=== PATIENT | male | born 1940 | race Caucasian/White ===

== ENCOUNTER 2021-12-04 10:43 | Inpatient (IN) ==
--- NOTE | 2021-12-04 11:09 | Emergency Department Note ---
Impression & Plan Stroke-like symptoms, Double vision, HTN (hypertension), Dyslipidemia, Gaze palsy ED Provider Note NAME: JANINE PALOMARES AGE: 81 SEX: M : 1940 ARRIVES VIA: Ambulance INFORMANT: Patient, ED PROVIDER(S): Rolo Meyer MD Chief Complaint: Double vision, weakness HPI: Patient presents with the above complaints. Patient states that his symptoms began around 830 this morning he had some generalized weakness and some double vision which has been intermittent in nature. The patient has not seen an eye doctor in several years. The patient did feel generally weak and thus did not want to do anything further to risk a concern for fall as he felt as though his legs were "rubbery." Patient Nuys any recent falls or trauma no history of stroke or mini stroke. The patient believes that the double vision is [id number] and not top to bottom. Patient denies any headache or neck pain. No numbness tingling or focal weakness. No slurred speech or facial droop. Patient states that he has been eating and drinking appropriately. The patient does occasionally use alcohol maybe a drink of george in the evening but is a former tobacco user but has not used in 40 years. ROS: See HPI for pertinent positives and negatives. A total of 10 systems were reviewed and otherwise negative. Past medical history: See below Surgical history: See below Social history: See below Physical Exam: GENERAL: NAD, wearing a mask, non-toxic. Glasses. EYE EXAM: Normal conjunctiva. PERRL, no anisocoria and EOM's grossly intact w/o pain. NECK: Supple, no nuchal rigidity, no adenopathy, non-tender. No signs of menin gismus. FROM of the neck with good chin to chest and neck extension. No stridor. LUNGS: Clear to auscultation. Normal chest wall mechanics. HEART: NSR, no MRG. ABDOMEN: Abdomen soft, non-tender, normo-active bowel sounds, no masses, no rebound or guarding. BACK: No CVA TTP. SKIN: No rashes and no bruising. UPPER EXTREMITIES: Upper extremities are grossly normal. LOWER EXTREMITIES: Grossly normal, no edema. NEURO EXAM: A&O x3, cranial nerves II-XII grossly intact with exception of occasional right moving to the right and the left eye is unable to move past the midline when looking to the right. Normal speech, moves all 4 extremities. [id number]-[id number] on the patient's eyes are closed, no sensory deficits. Differential diagnoses: Infection, dehydration, metabolic abnormality, hypo/hyperglycemia, electrolyte disturbance, anemia, hypoxia, cardiac sources, intracerebral event, toxicologic, neurologic, as well as other pathologies. Course: Patient was seen and evaluated the bedside. Full history physical exam was performed. EKG interpreted by me Sinus bradycardia, rate of 56, normal intervals, left axis deviation, no obvious ST elevations. Imaging Studies: See Below Cardiac monitoring: An order was placed for continuous cardiac monitoring. The monitor shows a rate of 77 with sinus rhythm. MDM: Patient was seen and upon identifying the patient's gaze palsy a code stroke was initiated as he was still within the window for TNKase potentially. The patient may not be a candidate as the patient does have a prior history of GI bleed for which he had stopped taking blood thinning medication. Blood work is obtained along with a CT of the head. CT angiography initially deferred given the patient's prior history of CKD with the patient's creatinine is range anywhere from 2 to greater than 3. I did speak with telestroke neurology Dr. Cordon who was going to evaluate the patient. There was a prolonged discussion about TNKase as the patient was debating the risks and benefits. This was also in light of the patient's prior history of GI bleeding. The patient has a normal H&H and platelet count. Patient's coagulation studies are normal. Tthe patient initially did not have a CT angiography as it was thought that the patient did have kidney dysfunction but given the patient's symptoms and the timeliness the patient eventually did state that he would like to have the TNKase. There was a delay in door to needle time primarily due to the fact that the patient was not triaged as a stroke and only noted to have stroke like symptoms when evaluated by myself which was somehwere betwen 30-40 minutes after presenting via ambulance. There was no pre arrival call either. The patient did consent to receiving the tNK after discussing the patient's CT of the head which did show an 8 mm peripherally calcified density posterior to the left ICA terminus which could be meningioma versus left MARKETING INFORMATION ANALYST aneurysm that is partially calcified. The telestroke neurologist further di scussed that an unruptured aneurysm would have a slightly higher risk of bleed and after further discussion the patient would still like to proceed with TNKase. TNKase was ordered after the decision was made to give it and consent was obtained verbally from the patient as well as the patient's family member at bedside. The patient was given labetalol CHRISTI or as the patient was slightly hypertensive. Patient's blood pressure did improve to the parameters in which TNKase could be administered. The patient did have a small amount of oral bleeding which did not appear to be significant when I assessed the patient. 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 I did speak with Dr. Huber again who stated that he did not require any additional intervention at this time and did not require transfer. The patient did have resolution of his gaze palsy and double vision. Patient was admitted to the intensive care unit. I did briefly discuss the patient's case with the special education superintendent Dr. Paz. Patient's brain MRI was pending at the time of admission. Discussion occurred with patient/family: We discussed the risks of IV thrombolytic therapy including a 5-7% risk of possible significant hemorrhage which can be fatal as well as about a 1% risk of angioedema. We also noted that IV thrombolytic therapy provides about a 30-40% probability of improved functional status and lower disability at 90 days than if not treated with thrombolytic. After discussion regarding risks and benefits as well as the inclusion and exclusion criteria, the patient then consented to receive IV thrombolytic therapy. Critical Care: I have personally spent 75 minutes of critical care time in direct management of this patient. This includes bedside care, interpretation of diagnostic studies, and testing, discussion with consultants, patient, and family members, and other require inpatient management activities. This 75 minutes is in excess of all separately billable procedures. 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 Follows vegan, no oil diet. marital status: Single Current Living Situation: Alone current occupational status: retired Feels Safe at Home: Yes Assistive Devices: Glasses Allergies Allergies Allergy/AdvReac Type Severity Reaction Status Date / Time No Known Allergies Allergy Unverified 12/04/21 12:37 Home Meds Home Medications Medication Instructions Recorded Confirmed amlodipine 5 mg tablet 5 mg PO DAILY 12/04/21 12/04/21 lisinopril 40 mg tablet 40 mg PO DAILY 12/04/21 12/04/21 pantoprazole 40 mg tablet,delayed 40 mg PO DAILY 12/04/21 12/04/21 release rosuvastatin 20 mg tablet 20 mg PO DAILY 12/04/21 12/04/21 Results & Data (ED) Vital Signs Vital Signs - 24 hr 12/04/21 10:46 12/04/21 10:50 12/04/21 11:32 Temperature 36.5 C Temperature Source Oral Pulse Rate 72 77 Pulse Rate [Apical] Pulse Rhythm [Apical] Pulse Strength [Apical] Respiratory Rate 20 23 Respiratory Effort / Characteristics Non-Labored Respiratory Depth Normal Respiratory Pattern Regular Blood Pressure 167/96 H Blood Pressure [Right Arm] Blood Pressure Mean 119 Blood Pressure Mean [Right Arm] Blood Pressure Position [Right Arm] Pulse Oximetry 98 Oxygen Delivery Method Room Air Room Air Sepsis New/Unexplained Change in Mental Status No Sepsis Action Taken by Nursing No Action Required 12/04/21 11:34 12/04/21 11:34 12/04/21 11:40 Temperature Temperature Source Pulse Rate 75 60 Pulse Rate [Apical] Pulse Rhythm [Apical] Pulse Strength [Apical] Respiratory Rate 23 21 Respiratory Effort / Characteristics Respiratory Depth Respiratory Pattern Blood Pressure 135/98 Blood Pressure [Right Arm] Blood Pressure Mean 110 Blood Pressure Mean [Right Arm] Blood Pressure Position [Right Arm] Pulse Oximetry 95 99 Oxygen Delivery Method Room Air Room Air Sepsis New/Unexplained Change in Mental Status Sepsis Action Taken by Nursing 12/04/21 12:35 12/04/21 11:50 12/04/21 12:00 Temperature Temperature Source Pulse Rate 58 L Pulse Rate [Apical] 72 Pulse Rhythm [Apical] Regular Pulse Strength [Apical] Normal Respiratory Rate 22 26 H Respiratory Effort / Characteristics Non-Labored Respiratory Depth Normal Respiratory Pattern Regular Blood Pressure 185/104 H Blood Pressure [Right Arm] 156/89 H Blood Pressure Mean 131 Blood Pressure Mean [Right Arm] 111 Blood Pressure Position [Right Arm] Sitting Pulse Oximetry 96 99 Oxygen Delivery Method Room Air Room Air Sepsis New/Unexplained Change in Mental Status Sepsis Action Taken by Nursing 12/04/21 12:00 12/04/21 12:10 12/04/21 12:27 Temperature Temperature Source Pulse Rate 70 75 68 Pulse Rate [Apical] Pulse Rhythm [Apical] Pulse Strength [Apical] Respiratory Rate 30 H 27 H 21 Respiratory Effort / Characteristics Respiratory Depth Respiratory Pattern Blood Pressure Blood Pressure [Right Arm] Blood Pressure Mean Blood Pressure Mean [Right Arm] Blood Pressure Position [Right Arm] Pulse Oximetry Oxygen Delivery Method Sepsis New/Unexplained Change in Mental Status Sepsis Action Taken by Nursing 12/04/21 12:36 12/04/21 12:36 12/04/21 12:40 Temperature Temperature Source Pulse Rate 57 L 72 Pulse Rate [Apical] Pulse Rhythm [Apical] Pulse Strength [Apical] Respiratory Rate 25 H 22 Respiratory Effort / Characteristics Respiratory Depth Respiratory Pattern Blood Pressure 156/89 H Blood Pressure [Right Arm] Blood Pressure Mean 111 Blood Pressure Mean [Right Arm] Blood Pressure Position [Right Arm] Pulse Oximetry 97 99 Oxygen Delivery Method Room Air Room Air Sepsis New/Unexplained Change in Mental Status Sepsis Action Taken by Nursing 12/04/21 12:41 12/04/21 12:41 12/04/21 12:48 Temperature Temperature Source Pulse Rate 75 Pulse Rate [Apical] Pulse Rhythm [Apical] Pulse Strength [Apical] Respiratory Rate 21 Respiratory Effort / Characteristics Respiratory Depth Respiratory Pattern Blood Pressure 135/89 135/82 Blood Pressure [Right Arm] Blood Pressure Mean 104 99 Blood Pressure Mean [Right Arm] Blood Pressure Position [Right Arm] Pulse Oximetry 98 Oxygen Delivery Method Room Air Sepsis New/Unexplained Change in Mental Status Sepsis Action Taken by Nursing 12/04/21 12:48 12/04/21 12:50 12/04/21 12:50 Temperature Temperature Source Pulse Rate 65 54 L Pulse Rate [Apical] Pulse Rhythm [Apical] Pulse Strength [Apical] Respiratory Rate 19 21 Respiratory Effort / Characteristics Respiratory Depth Respiratory Pattern Blood Pressure 136/77 Blood Pressure [Right Arm] Blood Pressure Mean 96 Blood Pressure Mean [Right Arm] Blood Pressure Position [Right Arm] Pulse Oximetry 97 97 Oxygen Delivery Method Room Air Room Air Sepsis New/Unexplained Change in Mental Status Sepsis Action Taken by [facility] Medications Current Medication List: was personally reviewed by me Laboratory Data Attestation: I reviewed the patient's lab results. Result diagrams: 12/04/21 11:06 12/04/21 11:06 Lab Results 12/04/21 12/04/21 12/04/21 Range/Units 11:06 11:06 11:06 WBC 4.32 L (4.8-10.8) K/ul RBC 4.40 L (4.63-6.08) M/uL Hgb 14.2 (14.0-18.0) g/dl Hct 41.3 (40.1-51.0) % MCV 93.9 (80.0-100.0) fL MCH 32.3 (25.0-34.0) pg MCHC 34.4 (32.0-36.0) g/dL RDW Std Deviation 43.8 (36.4-46.3) fL RDW Coeff of Lyudmila 12.8 (11.5-14.5) % Plt Count 152 (130-400) K/uL MPV 10.9 (9.4-12.4) fL Immature Gran % (Auto) 0.2 % Neut % (Auto) 59.1 % Lymph % (Auto) 25.2 % Waldo % (Auto) 13.4 % Eos % (Auto) 1.9 % Baso % (Auto) 0.2 % Neut # (Auto) 2.55 (1.4-6.5) K/uL Lymph # (Auto) 1.09 L (1.2-3.4) K/uL Waldo # (Auto) 0.58 (0.24-0.82) K/uL Eos # (Auto) 0.08 (0-0.50) K/uL Baso # (Auto) 0.01 (0-0.2) K/uL Immature Gran # (Auto) 0.01 (0.00-0.02) K/uL PT 10.9 (9.0-12.0) Seconds INR 1.0 (0.9-1.1) APTT 25.3 (21.0-31.0) Seconds PTT Ratio 0.9 Sodium 139 (136-145) mmol/L Potassium 4.5 (3.5-5.1) mmol/L Chloride 104 (98-107) mmol/L Carbon Dioxide 28 (21-32) mmol/L Anion Gap 7 (3-11) BUN 22 (6-23) mg/dl Creatinine 1.46 H (0.6-1.4) mg/dl Est Cr Clr Drug Dosing Not Reportable Est GFR ( Amer) 52.3 ml/min Est GFR (Non-Af Amer) 45.1 ml/min BUN/Creatinine Ratio 15.1 (10-20) Glucose 92 (70-99(Fasting)) mg/dl Calcium 9.5 (8.5-10.1) mg/dl Magnesium 2.3 (1.7-2.4) mg/dl Total Bilirubin 1.1 H (0.2-1.0) mg/dl AST 15 (13-39) U/L ALT 11 (7-52) U/L Alkaline Phosphatase 78 (34-104) U/L Troponin I High Sens 9.3 (0-20) pg/ml Total Protein 7.8 (6.0-8.3) gm/dl Albumin 4.9 (3.4-5.0) gm/dl Globulin 2.9 (2.5-4.0) gm/dl Albumin/Globulin Ratio 1.7 (0.9-2) Blood Type Antibody Screen 12/04/21 Range/Units 11:35 WBC (4.8-10.8) K/ul RBC (4.63-6.08) M/uL Hgb (14.0-18.0) g/dl Hct (40.1-51.0) % MCV (80.0-100.0) fL MCH (25.0-34.0) pg MCHC (32.0-36.0) g/dL RDW Std Deviation (36.4-46.3) fL RDW Coeff of Lyudmila (11.5-14.5) % Plt Count (130-400) K/uL MPV (9.4-12.4) fL Immature Gran % (Auto) % Neut % (Auto) % Lymph % (Auto) % Waldo % (Auto) % Eos % (Auto) % Baso % (Auto) % Neut # (Auto) (1.4-6.5) K/uL Lymph # (Auto) (1.2-3.4) K/uL Waldo # (Auto) (0.24-0.82) K/uL Eos # (Auto) (0-0.50) K/uL Baso # (Auto) (0-0.2) K/uL Immature Gran # (Auto) (0.00-0.02) K/uL PT (9.0-12.0) Seconds INR (0.9-1.1) APTT (21.0-31.0) Seconds PTT Ratio Sodium (136-145) mmol/L Potassium (3.5-5.1) mmol/L Chloride (98-107) mmol/L Carbon Dioxide (21-32) mmol/L Anion Gap (3-11) BUN (6-23) mg/dl Creatinine (0.6-1.4) mg/dl Est Cr Clr Drug Dosing Est GFR ( Amer) ml/min Est GFR (Non-Af Amer) ml/min BUN/Creatinine Ratio (10-20) Glucose (70-99(Fasting)) mg/dl Calcium (8.5-10.1) mg/dl Magnesium (1.7-2.4) mg/dl Total Bilirubin (0.2-1.0) mg/dl AST (13-39) U/L ALT (7-52) U/L Alkaline Phosphatase (34-104) U/L Troponin I High Sens (0-20) pg/ml Total Protein (6.0-8.3) gm/dl Albumin (3.4-5.0) gm/dl Globulin (2.5-4.0) gm/dl Albumin/Globulin Ratio (0.9-2) Blood Type AB Positive Antibody Screen NEGATIVE Administered Medications Pantoprazole Sodium 40 mg/ (Syringe) 10 mls @ 5 mls/min IV DAILY@1100 VITALIY Stop: 01/03/22 13:59 Last Admin: 12/04/21 15:57 Dose: 5 mls/min Documented By: MICHAEL Discontinued Medications Gadobutrol (Gadobutrol 65ml Vial) 8.5 ml IV ONCE ONE Stop: 12/04/21 15:15 Last Admin: 12/04/21 15:15 Dose: 8.5 ml Documented By: JZ Tenecteplase 21 mg/ Syringe 4.2 mls @ 50.4 mls/min IV NOW ONE; Protocol Stop: 12/04/21 12:29 Last Admin: 12/04/21 12:36 Dose: 50.4 mls/min Documented By: ESTRELLA Co-signed By: BRETT Ioversol (Optiray 300 500ml) 120 ml IV ONCE ONE Stop: 12/04/21 13:30 Last Admin: 12/04/21 13:30 Dose: 120 ml Documented By: MILES Labetalol HCl (Labetalol Hcl Iv 5 Mg/Ml 20ml) 10 mg IV NOW STA Stop: 12/04/21 12:18 Last Admin: 12/04/21 15:53 Dose: Not Given Documented By: MICHAEL Miscellaneous (Stat Iv) 1 each N/A NOW STA Stop: 12/04/21 12:18 Last Admin: 12/04/21 12:22 Dose: 1 each Documented By: ESTRELLA Sodium Chloride (Sodium Chloride 0.9% 10ml Flush) 20 ml IV NOW STA Stop: 12/04/21 12:18 Last Admin: 12/04/21 12:37 Dose: 20 ml Documented By: ESTRELLA Imaging Data Radiologist's Impression: Head CT 12/04/21 11:19 CT OF THE HEAD WITHOUT CONTRAST CLINICAL HISTORY: Stroke Like Symptoms. Ataxia. COMPARISON STUDY: No previous studies for comparison. CT DOSE: 687.98 mGy.cm TECHNIQUE: Helical axial images of the head were obtained without IV contrast. Automated exposure control was utilized for the study. A dose lowering technique was utilized adhering to the principles of ALARA. FINDINGS: No acute intracranial hemorrhage, midline shift or mass effect is present. Note is made of an 8 mm peripherally calcified density posterior to the left ICA terminus. White matter hypodensity suggests small vessel disease. The ventricular system is unremarkable. The basal cisterns are patent. No extra- axial collections are present. There are no findings to suggest acute dural sinus thrombosis or acute territorial infarct. No significant calvarial abnormalities are present. There is mild mucosal thickening of the right maxillary sinus. IMPRESSION: 1. No acute intracranial findings. 2. 8 mm peripherally calcified density posterior to the left ICA terminus. This is indeterminate and could reflect a peripherally calcified left posterior communicating artery aneurysm or a meningioma. A CTA of the head could be obtained for further evaluation. ACT 112: Negative or not required by law. Electronically signed by: Reji Long M.D. 12/04/2021 11:56 AM Head CTA 12/04/21 12:23 HEAD & NECK CTA HISTORY: Ataxia. posterior circ symptoms TECHNIQUE: Multiaxial CT images of the head were performed following the intravenous administration of contrast to evaluate the major cerebral vessels. Multiaxial CT images of the neck were also performed following the intravenous administration of contrast to evaluate the major cervical vessels. Maximum intensity projection images were also obtained. A dose lowering technique was utilized adhering to the principles of ALARA. COMPARISON: Head CT 12/04/2021. FINDINGS: There is no mass, hematoma, midline shift, or acute infarct. Visualized intracranial internal carotid arteries, distal vertebral arteries, and basilar artery are widely patent. There is no significant stenosis, occlusion, or aneurysm seen within the bilateral ACAs, MCAs . The right MARKETING INFORMATION ANALYST is widely patent. There is focal moderate narrowing at the confluence of the left P1/P2 segments. The distal left MARKETING INFORMATION ANALYST appears patent. Immediately posterior to the left MARKETING INFORMATION ANALYST at the expected location of the left posterior communicating artery there is a 7 mm hypodense partially calcified focus. 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 This corresponds to the CT abnormality. The major dural venous sinuses are patent. Mild mucosal thickening within the right maxillary sinus. The aortic arch and proximal great vessels are widely patent. Mild focal aneurysmal dilatation of the mid left vertebral artery on image 267 measuring 6.5 mm. Moderate focal stenosis of approximately 50% within the takeoff of the left vertebral artery. Moderate atherosclerotic plaque within the takeoff of the left internal carotid artery demonstrating approximately 30% focal stenosis. No high-grade stenosis within the internal carotid arteries. There is mild calcified plaque within the proximal right internal carotid artery demonstrating approximately 20% focal stenosis on image 282. Bilateral common carotid arteries are widely patent. No evidence for carotid or vertebral artery dissection. IMPRESSION: 1. Moderate focal narrowing at the confluence of the left P1/P2 segments. The distal left MARKETING INFORMATION ANALYST appears patent. 2. Immediately posterior to the proximal left MARKETING INFORMATION ANALYST at the expected location of the left posterior communicating artery there is a 7 mm hypodense partially calcified focus. 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 3. Moderate focal stenosis at the takeoff of the left vertebral artery. 4. Mild stenosis within the proximal bilateral internal carotid arteries as described above. ACT 112: Negative or not required by law. Electronically signed by: Kamaljit Larkin M.D. 12/04/2021 1:52 PM Neck CTA 12/04/21 12:23 HEAD & NECK CTA HISTORY: Ataxia. posterior circ symptoms TECHNIQUE: Multiaxial CT images of the head were performed following the intravenous administration of contrast to evaluate the major cerebral vessels. Multiaxial CT images of the neck were also performed following the intravenous administration of contrast to evaluate the major cervical vessels. Maximum in tensity projection images were also obtained. A dose lowering technique was utilized adhering to the principles of ALARA. COMPARISON: Head CT 12/04/2021. FINDINGS: There is no mass, hematoma, midline shift, or acute infarct. Visualized intracranial internal carotid arteries, distal vertebral arteries, and basilar artery are widely patent. There is no significant stenosis, occlusion, or aneurysm seen within the bilateral ACAs, MCAs . The right MARKETING INFORMATION ANALYST is widely patent. There is focal moderate narrowing at the confluence of the left P1/P2 segments. The distal left MARKETING INFORMATION ANALYST appears patent. Immediately posterior to the left MARKETING INFORMATION ANALYST at the expected location of the left posterior communicating artery there is a 7 mm hypodense partially calcified focus. 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 This corresponds to the CT abnormality. The major dural venous sinuses are patent. Mild mucosal thickening within the right maxillary sinus. The aortic arch and proximal great vessels are widely patent. Mild focal aneurysmal dilatation of the mid left vertebral artery on image 267 measuring 6.5 mm. Moderate focal stenosis of approximately 50% within the takeoff of the left vertebral artery. Moderate atherosclerotic plaque within the takeoff of the left internal carotid artery demonstrating approximately 30% focal stenosis. No high-grade stenosis within the internal carotid arteries. There is mild calcified plaque within the proximal right internal carotid artery demonstrating approximately 20% focal stenosis on image 282. Bilateral common carotid arteries are widely patent. No evidence for carotid or vertebral artery dissection. IMPRESSION: 1. Moderate focal narrowing at the confluence of the left P1/P2 segments. The distal left MARKETING INFORMATION ANALYST appears patent. 2. Immediately posterior to the proximal left MARKETING INFORMATION ANALYST at the expected location of the left posterior communicating artery there is a 7 mm hypodense partially calcified focus. 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 3. Moderate focal stenosis at the takeoff of the left vertebral artery. 4. Mild stenosis within the proximal bilateral internal carotid arteries as described above. ACT 112: Negative or not required by law. Electronically signed by: Kamaljit Larkin M.D. 12/04/2021 1:52 PM Discharge Plan Visit Data Chief Complaint: Weakness ED Provider: Rolo Meyer Discharge Problem: Stroke-like symptoms, Double vision, HTN (hypertension), Dyslipidemia, Gaze palsy Patient Disposition: Admitted As Inpatient Discharge Instructions Interventions: ED Discharge Assessment Last Done: 12/04/21 14:45
[2021-12-04 11:27] LABS: Basophils # (auto) 0.01 K/uL (0-0.2); Basophils % (auto) 0.2 %; Eosinophils # (auto) 0.08 K/uL (0-0.50); Eosinophils % (auto) 1.9 %; Hematocrit (blood only) 41.3 % (40.1-51.0); Hemoglobin 14.2 g/dl (14.0-18.0); Immature Granulocytes # (auto) 0.01 K/uL (0.00-0.02); Immature Granulocytes % (auto) 0.2 %; Lymphocytes # (auto) 1.09 K/uL (1.2-3.4); Lymphocytes % (auto) 25.2 %; Mean Corpuscular Hemoglobin 32.3 pg (25.0-34.0); Mean Corpuscular Hgb Conc 34.4 g/dL (32.0-36.0); Mean Corpuscular Volume 93.9 fL (80.0-100.0); Mean Platelet Volume 10.9 fL (9.4-12.4); Monocytes # (auto) 0.58 K/uL (0.24-0.82); Monocytes % (auto) 13.4 %; Neutrophils # (auto) 2.55 K/uL (1.4-6.5); Neutrophils % (auto) 59.1 %; Platelet Count 152 K/uL (130-400); RDW Coefficient of Variation 12.8 % (11.5-14.5); RDW Standard Deviation 43.8 fL (36.4-46.3); White Blood Count 4.32 K/ul (4.8-10.8)
[2021-12-04 11:34] LABS: Partial Thromboplastin Ratio 0.9; Partial Thromboplastin Time 25.3 Seconds (21.0-31.0); Prothrombin Time 10.9 Seconds (9.0-12.0)
[2021-12-04 11:53] LABS: Alanine Aminotransferase 11 U/L (7-52); Albumin Globulin Ratio 1.7 (0.9-2); Albumin Level 4.9 gm/dl (3.4-5.0); Alkaline Phosphatase 78 U/L (34-104); Anion Gap 7 (3-11); Aspartate Aminotransferase 15 U/L (13-39); BUN Creatinine Ratio 15.1 (10-20); Bilirubin,Total 1.1 mg/dl (0.2-1.0); Blood Urea Nitrogen 22 mg/dl (6-23); Calcium 9.5 mg/dl (8.5-10.1); Carbon Dioxide 28 mmol/L (21-32); Chloride 104 mmol/L (98-107); Est GFR (African American) 52.3 ml/min; Est GFR (Non-African American) 45.1 ml/min; Globulin 2.9 gm/dl (2.5-4.0); Glucose 92 mg/dl (70-99(Fasting)); Magnesium 2.3 mg/dl (1.7-2.4); Potassium 4.5 mmol/L (3.5-5.1); Sodium 139 mmol/L (136-145); Total Protein 7.8 gm/dl (6.0-8.3)
[2021-12-04 11:55] LABS: Troponin I High Sensitivity 9.3 pg/ml (0-20)
--- NOTE | 2021-12-04 11:57 | CT Scan Report ---
CT OF THE HEAD WITHOUT CONTRAST CLINICAL HISTORY: Stroke Like Symptoms. Ataxia. COMPARISON STUDY: No previous studies for comparison. CT DOSE: 687.98 mGy.cm TECHNIQUE: Helical axial images of the head were obtained without IV contrast. Automated exposure con trol was utilized for the study. A dose lowering technique was utilized adhering to the principles o f ALARA. FINDINGS: No acute intracranial hemorrhage, midline shift or mass effect is present. Note is made of an 8 mm peripherally calcified density posterior to the left ICA terminus. White matter hypodensity s uggests small vessel disease. The ventricular system is unremarkable. The basal cisterns are patent. No extra-axial collections are present. There are no findings to suggest acute dural sinus thrombosis or acute territorial infarct. No significant calvarial abnormalities are present. There is mild muco joann thickening of the right maxillary sinus. IMPRESSION: 1. No acute intracranial findings. 2. 8 mm peripherally calcified density posterior to the left ICA terminus. This is indeterminate and could reflect a peripherally calcified left posterior communicating artery aneurysm or a meningioma. A CTA of the head could be obtained for further evaluation. ACT 112: Negative or not required by law. Electronically signed by: Reji Long M.D. 12/04/2021 11:56 AM
[2021-12-04] MEDS ORDERED: LABETALOL HCL IV 5 MG/ML 20ML IV STA (12:17)
[2021-12-04] MEDS ORDERED: LABETALOL HCL IV 5 MG/ML 20ML IV PRN (12:17)
[2021-12-04] MEDS ORDERED: STAT IV STA (12:17)
[2021-12-04] MEDS ORDERED: SODIUM CHLORIDE 0.9% 10ML FLUSH IV STA (12:17)
[2021-12-04] MEDS ORDERED: TENECTEPLASE 21 MG in SYRINGE 0 ML IV ONE (12:28)
[2021-12-04] MEDS ORDERED: No Aspirin within 24hrs of THROMBOLYTIC-Stroke PO SCH (12:30)
--- NOTE | 2021-12-04 13:05 | History & Physical Report ---
Date of Service December 04, 2021 Assessment & Plan (1) Stroke-like symptoms: (2) Double vision: (3) HTN (hypertension): (4) Bilateral pulmonary embolism: (5) GIB (gastrointestinal bleeding): Plan Mr. Gallagher is a 81 year old male who presented to the [facility] with double vision and overall weakness that started this morning at 0830. Teleneuro consultation/CVA alert s/p TNK administration. Head CT r/o ICH; suggests 8mm density of the left ICA terminus. Head CTA and brain MRI pending. Pt to be admitted to ICU for post TNK neuro checks and HTN management. Stroke-like Symptoms Double Vision Weakness: Symptoms started at 0830 this morning with overall lower extremity weakness. Post TNK Teleneuro consultation done; per review with ED doc - no need to transfer at this time. 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 MRI brain w/wo contrast pending Stroke order set initiated Some PAC's noted post administration of TNK - repeat EKG ordered. Post TNK - double vision improved. HTN: H/O HTN; takes Amlodipine and Lisinopril; hold for now Received Labatolol 10 mg IV x2 in ED; appears normotensive SBP 135. B/L Pulmonary Embolism: 4-5 years ago. Was started on Xaralto; stopped d/t GIB in 03/2021 H/O GIB: Stable: Anticoagulation stopped 04/01 When GIB occurred Hgb: 14.2 Dispo: PCP: unknown. Pt lives in [place]. Reports not going to the doctor often. Code Status: DNR/DNI Next of Kin: Adam Gallagher (son and POA) Lives in [place] [phone] VTE Prophylaxis: just received TNK. TEDs/SCDs Pt lives alone in a 2-story home and is able to complete and perform his own ADL's independently. History of Present Illness Chief Complaint: dbl vision/weakness Primary Care Provider: NO PCP Mr. Gallagher is a 81 year old male who presented to the [facility] with double vision and overall lower extremity weakness that started this morning at 0830. He is visiting his family from [place] He reportedly stated that his legs felt 'rubbery'. The patient denies any recent trauma or other falls. He reports no history of previous CVA/TIA. The pt had a head CT that ruled out I CH; however, an 8mm density of the left ICA terminus was noted suggesting a possible meningioma. A CTA was performed as well and thrombosed PCOM was noted. MRI pending. Teleneuro consultation was held at 1130 post TNK, along with him receiving antihypertensive agents. Patient is DNR/DNI and discussion held with Neuro telemed; no need to transfer at this time. Additional PMH includes bilateral PE and his anticoagulation was discontinued in March 2021 s/p GIB . Otherwise, no real reported PMH and he is not currently in our EMR system. Patient will be admitted to ICU for post TNK neuro checks and BP management. Case discussed with Dr. Pool and Dr. Douglass in detail. Please see A/P for further details. Allergies Allergy/AdvReac Type Severity Reaction Status Date / Time No Known Allergies Allergy Unverified 12/04/21 12:37 Home Medications Medication Instructions Recorded Confirmed Type amlodipine 5 mg tablet 5 mg PO DAILY 12/04/21 12/04/21 History lisinopril 40 mg tablet 40 mg PO DAILY 12/04/21 12/04/21 History pantoprazole 40 mg tablet,delayed 40 mg PO DAILY 12/04/21 12/04/21 History release rosuvastatin 20 mg tablet 20 mg PO DAILY 12/04/21 12/04/21 History Past Med/Surg History Medical History (Updated 12/04/21 @ 16:01 by Laura Pool MD) Bilateral pulmonary embolism Double vision GI bleed GIB (gastrointestinal bleeding) H/O: HTN (hypertension) HTN (hypertension) Stroke-like symptoms Family History Other No significant family history Social History Smoking Status: Former smoker Hx Alcohol Use: No Hx Substance Use: No Preferred Language: Malagasy Communication Ability: Effective Pharmacy Informatics Specialist Required: No Beliefs That Will Affect Care: Jew Jew Beliefs: Retired [employer]. Follows vegan, no oil diet. marital status: Single Current Living Situation: Alone current occupational status: retired Other Information That Helps Us Care for You: No Feels Safe at Home: Yes Safety Concerns: Feels Safe At This Time Assistive Devices: Glasses Review of Systems Review of Systems: Neuro: (-) Falls, trauma, slurred speech (+) dbl vision HEENT: (-) GARCIA, dizziness, dysphagia, visual or auditory changes CV: (-) CP, palpitations, swelling Resp: (-) SOB GI: (-) appetite changes, N/V/D, bowel changes : (-) urinary changes Skin: (-) rashes Psych: (-) anxiety, depression Physical Exam Physical Exam: Neuro: AAOx4, PERRLA, no aphagia, memory changes. Midline gaze improved HEENT: head normocephalic, moist mucus membranes CV: S1/S2, (-) M/G/R, (-) edema, cap refill < 3 seconds Resp: Lungs CTA in all nicholson. On RA GI: Abdomen S/NT/ND, Ax4 bowel sounds, (-) CVA tenderness Musculoskeletal: 4+/5 B/L UE strength, 4+/5 B/L LE strength. Skin: (-) rashes , (-) erythema. Psych: euthymic mood Results & Data Results & Data ([facility]) Vital Signs (Past 12 Hours) Vital Signs Temp Pulse Pulse Resp BP BP Pulse Ox 12/04/21 12:48 65 19 97 12/04/21 12:48 135/82 12/04/21 12:41 135/89 12/04/21 12:41 75 21 98 12/04/21 12:40 72 22 99 12/04/21 12:36 57 L 25 H 97 12/04/21 12:36 156/89 H 12/04/21 12:27 68 21 12/04/21 12:10 75 27 H 12/04/21 12:00 70 30 H 12/04/21 12:00 185/104 H 12/04/21 11:50 58 L 26 H 99 12/04/21 12:35 72 22 156/89 H 96 12/04/21 11:40 60 21 99 12/04/21 11:34 135/98 12/04/21 11:34 75 23 95 12/04/21 11:32 77 23 12/04/21 10:50 12/04/21 10:46 36.5 C 72 20 167/96 H 98 O2 Del Method 12/04/21 12:48 Room Air 12/04/21 12:48 12/04/21 12:41 12/04/21 12:41 Room Air 12/04/21 12:40 Room Air 12/04/21 12:36 Room Air 12/04/21 12:36 12/04/21 12:27 12/04/21 12:10 12/04/21 12:00 12/04/21 12:00 12/04/21 11:50 Room Air 12/04/21 12:35 Room Air 12/04/21 11:40 Room Air 12/04/21 11:34 12/04/21 11:34 Room Air 12/04/21 11:32 12/04/21 10:50 Room Air 12/04/21 10:46 Room Air Laboratory Results Short CBC 12/04/21 Range/Units 11:06 WBC 4.32 L (4.8-10.8) K/ul Hgb 14.2 (14.0-18.0) g/dl Hct 41.3 (40.1-51.0) % Plt Count 152 (130-400) K/uL BMP 12/04/21 11:06 Sodium 139 Potassium 4.5 Chloride 104 Carbon Dioxide 28 BUN 22 Creatinine 1.46 H Glucose 92 Calcium 9.5 Liver Function 12/04/21 Range/Units 11:06 Total Bilirubin 1.1 H (0.2-1.0) mg/dl AST 15 (13-39) U/L ALT 11 (7-52) U/L Alkaline Phosphatase 78 (34-104) U/L Albumin 4.9 (3.4-5.0) gm/dl Diagnostic Findings Head CT 12/04/21 11:19 CT OF THE HEAD WITHOUT CONTRAST CLINICAL HISTORY: Stroke Like Symptoms. Ataxia. COMPARISON STUDY: No previous studies for comparison. CT DOSE: 687.98 mGy.cm TECHNIQUE: Helical axial images of the head were obtained without IV contrast. Automated exposure control was utilized for the study. A dose lowering technique was utilized adhering to the principles of ALARA. FINDINGS: No acute intracranial hemorrhage, midline shift or mass effect is present. Note is made of an 8 mm peripherally calcified density posterior to the left ICA terminus. White matter hypodensity suggests small vessel disease. The ventricular system is unremarkable. The basal cisterns are patent. No extra- axial collections are present. There are no findings to suggest acute dural sinus thrombosis or acute territorial infarct. No significant calvarial abnormalities are present. There is mild mucosal thickening of the right maxillary sinus. IMPRESSION: 1. No acute intracranial findings. 2. 8 mm peripherally calcified density posterior to the left ICA terminus. This is indeterminate and could reflect a peripherally calcified left posterior communicating artery aneurysm or a meningioma. A CTA of the head could be obtained for further evaluation. ACT 112: Negative or not required by law. Electronically signed by: Reji Long M.D. 12/04/2021 11:56 AM Head CTA 12/04/21 12:23 HEAD & NECK CTA HISTORY: Ataxia. posterior circ symptoms TECHNIQUE: Multiaxial CT images of the head were performed following the intravenous administration of contrast to evaluate the major cerebral vessels. Multiaxial CT images of the neck were also performed following the intravenous administration of contrast to evaluate the major cervical vessels. Maximum intensity projection images were also obtained. A dose lowering technique was utilized adhering to the principles of ALARA. COMPARISON: Head CT 12/04/2021. FINDINGS: There is no mass, hematoma, midline shift, or acute infarct. Visualized intracranial internal carotid arteries, distal vertebral arteries, and basilar artery are widely patent. There is no significant stenosis, occlusion, or aneurysm seen within the bilateral ACAs, MCAs . The right BIAS CUTTER is widely patent. There is focal moderate narrowing at the confluence of the left P1/P2 segments. The distal left BIAS CUTTER appears patent. Immediately posterior to the left BIAS CUTTER at the expected location of the left posterior communicating artery there is a 7 mm hypodense partially calcified focus. 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 This corresponds to the CT abnormality. The major dural venous sinuses are patent. Mild mucosal thickening within the right maxillary sinus. The aortic arch and proximal great vessels are widely patent. Mild focal aneurysmal dilatation of the mid left vertebral artery on image 267 measuring 6.5 mm. Moderate focal stenosis of approximately 50% within the takeoff of the left vertebral artery. Moderate atherosclerotic plaque within the takeoff of the left internal carotid artery demonstrating approximately 30% focal stenosis. No high-grade stenosis within the internal carotid arteries. There is mild calcified plaque within the proximal right internal carotid artery demonstrating approximately 20% focal stenosis on image 282. Bilateral common carotid arteries are widely patent. No evidence for carotid or vertebral artery dissection. IMPRESSION: 1. Moderate focal narrowing at the confluence of the left P1/P2 segments. The distal left BIAS CUTTER appears patent. 2. Immediately posterior to the proximal left BIAS CUTTER at the expected location of the left posterior communicating artery there is a 7 mm hypodense partially calcified focus. 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 3. Moderate focal stenosis at the takeoff of the left vertebral artery. 4. Mild stenosis within the proximal bilateral internal carotid arteries as described above. ACT 112: Negative or not required by law. Electronically signed by: Kamaljit Larkin M.D. 12/04/2021 1:52 PM Neck CTA 12/04/21 12:23 HEAD & NECK CTA HISTORY: Ataxia. posterior circ symptoms TECHNIQUE: Multiaxial CT images of the head were performed following the intravenous administration of contrast to evaluate the major cerebral vessels. Multiaxial CT images of the neck were also performed following the intravenous administration of contrast to evaluate the major cervical vessels. Maximum intensity projection images were also obtained. A dose lowering technique was utilized adhering to the principles of ALARA. COMPARISON: Head CT 12/04/2021. FINDINGS: There is no mass, hematoma, midline shift, or acute infarct. Visualized intracranial internal carotid arteries, distal vertebral arteries, and basilar artery are widely patent. There is no significant stenosis, occlusion, or aneurysm seen within the bilateral ACAs, MCAs . The right BIAS CUTTER is widely patent. There is focal moderate narrowing at the confluence of the left P1/P2 segments. The distal left BIAS CUTTER appears patent. Immediately posterior to the left BIAS CUTTER at the expected location of the left posterior communicating artery there is a 7 mm hypodense partially calcified focus. 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 This corresponds to the CT abnormality. The major dural venous sinuses are patent. Mild mucosal thickening within the right maxillary sinus. The aortic arch and proximal great vessels are widely patent. Mild focal aneurysmal dilatation of the mid left vertebral artery on image 267 measuring 6.5 mm. Moderate focal stenosis of approximately 50% within the takeoff of the left vertebral artery. Moderate atherosclerotic plaque within the takeoff of the left internal carotid artery demonstrating approximately 30% focal stenosis. No high-grade stenosis within the internal carotid arteries. There is mild calcified plaque within the proximal right internal carotid artery demonstrating approximately 20% focal stenosis on image 282. Bilateral common carotid arteries are widely patent. No evidence for carotid or vertebral artery dissection. IMPRESSION: 1. Moderate focal narrowing at the confluence of the left P1/P2 segments. The distal left BIAS CUTTER appears patent. 2. Immediately posterior to the proximal left BIAS CUTTER at the expected location of the left posterior communicating artery there is a 7 mm hypodense partially calcified focus. 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 3. Moderate focal stenosis at the takeoff of the left vertebral artery. 4. Mild stenosis within the proximal bilateral internal carotid arteries as described above. ACT 112: Negative or not required by law. Electronically signed by: Kamaljit Larkin M.D. 12/04/2021 1:52 PM Code Status & VTE Plan Code Status DNR/DNI in the event of cardiac or respiratory arrest VTE Prophylaxis Plan VTE Prophylaxis will be ordered: Yes Supervising Physician Co-Signing Physician Notes Patient was seen and examined independently at bedside. Chart reviewed. Case discussed with Shivani GARCIA and agree with the documentation above. In summary, this is a 81 year old male who came with diplopia and leg weakness, s/p stroke alert and tPA with significant improvement. CT, CTA head and neck, MRI brain reviewed. Admit to ICU post tPA. Continue stroke work up. Further management per community relations coordinator and neurology. Rest as per the note above.
[2021-12-04] MEDS ORDERED: OPTIRAY 300 500mL IV ONE (13:29)
--- NOTE | 2021-12-04 13:40 | Critical Care Consultation ---
Date of Consultation December 04, 2021 Assessment & Plan (1) Stroke-like symptoms: (2) Double vision: (3) HTN (hypertension): (4) Bilateral pulmonary embolism: (5) GIB (gastrointestinal bleeding): (6) Dyslipidemia: (7) Ex-smoker: Plan -- Strokelike symptoms with double vision and dizziness S/p TNK on 12/04/2021 11:30 AM in the ED Initial CT head 12/04/2021 negative for any intracranial finding. 8 mm peripheral calcified density posterior to left ICA terminus CTA Neck : 1. Moderate focal narrowing at the confluence of the left P1/P2 segme nts. The distal left KILN FURNITURE CASTER appears patent. 2. Moderate focal stenosis at the takeoff of the left vertebral artery. Continue with neurochecks Blood pressure management. Maintain SBP less than 180, DBP less than 105 for the first 24 hours post tPA -- Bradycardia with PACs Asymptomatic Not on any beta-blockers at home Patient did not receive any beta-blockers in the ED EKG 12/03/2021 1:06 PM: Sinus bradycardia with PAC, no ST-T wave changes appreciated --REMI Monitor BUNs/creatinine Avoid nephrotoxic medication --History of hypertension On amlodipine and lisinopril at home Resume it tomorrow --Dyslipidemia On rosuvastatin at home -- History of PE Diagnosed approximately 4-5 years ago Was on anticoagulation but stopped because of GI bleed in March 2021 -- History of GI bleed in the past Monitor H&H Continue Protonix --Ex-smoker Approximately [id number] smoking history Quit in the mid 30s Encouraged to continue abstinence from smoking --Prophylaxis VTE: IPC GI: Protonix Lines: Peripheral Diet: Cardiac Plan: Keep blood pressure<180/105 mmHg Monitor for signs of any bleeding Start aspirin 24 hours after tPA with a negative CT head 2D echo with bubble study ordered I have personally spent 41 minutes of critical care time in the direct management of this patient. This is a life/limb threatening event. This includes time spent evaluating patient, direct bedside care, chart review, placing orders, interpretation of diagnostic studies, discussion with consultants, patient, and family members, as well as other required patient management activities. This time is exclusive of all separately billable procedures, and teaching time and separate from and in addition to any other critical care service time. Please note the above document was generated using voice recognition software. It may contain grammatical, syntax or spelling errors. History of Present Illness History of Present Illness 81-year-old male presented to the hospital with double vision and overall weakness that started 8:30 AM Past medical history: Hypertension, pulmonary embolism 2020, did not finish anticoagulation because of bleed Patient got TNK around 11:30 AM, ICU consult for the management In the ICU patient was feeling much better. He did complain still of generalized lethargy but blurry vision has almost resolved. Denies any headache, mild nausea. He was nauseous even before presenting to the hospital. Denies any tingling sensation or weakness in any of the extremities. No fever or chills He has been having good appetite and drinking enough fluids in the recent past No headache right now No dysuria, no diarrhea Social history: Approximately [id number] smoking history quit in the mid 30s. Drinks george socially Allergies Allergy/AdvReac Type Severity Reaction Status Date / Time No Known Allergies Allergy Unverified 12/04/21 12:37 Home Medications Medication Instructions Recorded Confirmed Type amlodipine 5 mg tablet 5 mg PO DAILY 12/04/21 12/04/21 History lisinopril 40 mg tablet 40 mg PO DAILY 12/04/21 12/04/21 History pantoprazole 40 mg tablet,delayed 40 mg PO DAILY 12/04/21 12/04/21 History release rosuvastatin 20 mg tablet 20 mg PO DAILY 12/04/21 12/04/21 History Patient History Medical History Bilateral pulmonary embolism Double vision GI bleed GIB (gastrointestinal bleeding) H/O: HTN (hypertension) HTN (hypertension) Stroke-like symptoms Family History Other No significant family history Social History Smoking Status: Former smoker Hx Alcohol Use: No Hx Substance Use: No Preferred Language: Ivorian Communication Ability: Effective Route Cdl Driver Required: No Beliefs That Will Affect Care: Mosque Mosque Beliefs: Retired [employer]. Follows vegan, no oil diet. marital status: Single Current Living Situation: Alone current occupational status: retired Feels Safe at Home: Yes Assistive Devices: Glasses Review of Systems Review of Systems: All systems reviewed & are unremarkable except as noted in HPI & below Physical Exam Physical Exam: Constitutional: No acute distress HEENT: EOMI, PERRLA Respiratory system: Good air entry bilaterally, no wheeze, rhonchi, mild crackles bilateral lower lobe CVS: S1-S2 positive, no murmurs or gallops, bradycardia Abdomen: Soft, nontender, nondistended, positive bowel sounds x4 Extremities: +2 pulses bilaterally radialis/ dorsalis pedis, no cyanosis, no edema Neuro: Awake alert oriented x3 Psych: Normal mood and affect G/U: Positive Denis Skin: no rashes, warm and dry Lymphatic: no cervical or axillary lymphadenopathy Results & Data Results & Data ([facility]) Vital Signs (Past 12 Hours) Vital Signs Temp Pulse Pulse Resp BP BP Pulse Ox 12/04/21 12:48 65 19 97 12/04/21 12:48 135/82 12/04/21 12:41 135/89 12/04/21 12:41 75 21 98 12/04/21 12:40 72 22 99 12/04/21 12:36 57 L 25 H 97 12/04/21 12:36 156/89 H 12/04/21 12:27 68 21 12/04/21 12:10 75 27 H 12/04/21 12:00 70 30 H 12/04/21 12:00 185/104 H 12/04/21 11:50 58 L 26 H 99 12/04/21 12:35 72 22 156/89 H 96 12/04/21 11:40 60 21 99 12/04/21 11:34 135/98 12/04/21 11:34 75 23 95 12/04/21 11:32 77 23 12/04/21 10:50 12/04/21 10:46 36.5 C 72 20 167/96 H 98 O2 Del Method 12/04/21 12:48 Room Air 12/04/21 12:48 12/04/21 12:41 12/04/21 12:41 Room Air 12/04/21 12:40 Room Air 12/04/21 12:36 Room Air 12/04/21 12:36 12/04/21 12:27 12/04/21 12:10 12/04/21 12:00 12/04/21 12:00 12/04/21 11:50 Room Air 12/04/21 12:35 Room Air 12/04/21 11:40 Room Air 12/04/21 11:34 12/04/21 11:34 Room Air 12/04/21 11:32 12/04/21 10:50 Room Air 12/04/21 10:46 Room Air Laboratory Results 12/04/21 11:06 12/04/21 11:06 Coding Level of Care Code Critical Care 1st 30-74 mins Diagnoses Stroke-like symptoms R29.90 Double vision H53.2 HTN (hypertension) I10 Bilateral pulmonary embolism I26.99 GIB (gastrointestinal bleeding) K92.2 Dyslipidemia E78.5 Ex-smoker Z87.891 Time Spent (min) 41
--- NOTE | 2021-12-04 13:54 | CT Scan Report ---
HEAD & NECK CTA HISTORY: Ataxia. posterior circ symptoms TECHNIQUE: Multiaxial CT images of the head were performed following the intravenous administration o f contrast to evaluate the major cerebral vessels. Multiaxial CT images of the neck were also perform ed following the intravenous administration of contrast to evaluate the major cervical vessels. Maxim um intensity projection images were also obtained. A dose lowering technique was utilized adhering to the principles of ALARA. COMPARISON: Head CT 12/04/2021. FINDINGS: There is no mass, hematoma, midline shift, or acute infarct. Visualized intracranial internal carotid arteries, distal vertebral arteries, and basilar artery are widely patent. There is no significant s tenosis, occlusion, or aneurysm seen within the bilateral ACAs, MCAs . The right CIVIL DESIGN TECHNICIAN is widely patent . There is focal moderate narrowing at the confluence of the left P1/P2 segments. The distal left CIVIL DESIGN TECHNICIAN appears patent. Immediately posterior to the left CIVIL DESIGN TECHNICIAN at the expected location of the left posterior communicating artery there is a 7 mm hypodense partially calcified focus. 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 This corresponds to the CT abno rmality. The major dural venous sinuses are patent. Mild mucosal thickening within the right maxillar y sinus. The aortic arch and proximal great vessels are widely patent. 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 Moderate focal stenosis of approximately 50% within the takeoff of the left vertebral artery. Moderate atherosclerotic plaque within the takeo ff of the left internal carotid artery demonstrating approximately 30% focal stenosis. No high-grade stenosis within the internal carotid arteries. There is mild calcified plaque within the proximal rig ht internal carotid artery demonstrating approximately 20% focal stenosis on image 282. Bilateral com mon carotid arteries are widely patent. No evidence for carotid or vertebral artery dissection. IMPRESSION: 1. Moderate focal narrowing at the confluence of the left P1/P2 segments. The distal left CIVIL DESIGN TECHNICIAN appears patent. 2. Immediately posterior to the proximal left CIVIL DESIGN TECHNICIAN at the expected location of the left posterior comm unicating artery there is a 7 mm hypodense partially calcified focus. 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 3. Moderate focal stenosis at the takeoff of the left vertebral artery. 4. Mild stenosis within the proximal bilateral internal carotid arteries as described above. ACT 112: Negative or not required by law. Electronically signed by: Kamaljit Larkin M.D. 12/04/2021 1:52 PM
--- NOTE | 2021-12-04 13:54 | CT Scan Report ---
HEAD & NECK CTA HISTORY: Ataxia. posterior circ symptoms TECHNIQUE: Multiaxial CT images of the head were performed following the intravenous administration o f contrast to evaluate the major cerebral vessels. Multiaxial CT images of the neck were also perform ed following the intravenous administration of contrast to evaluate the major cervical vessels. Maxim um intensity projection images were also obtained. A dose lowering technique was utilized adhering to the principles of ALARA. COMPARISON: Head CT 12/04/2021. FINDINGS: There is no mass, hematoma, midline shift, or acute infarct. Visualized intracranial internal carotid arteries, distal vertebral arteries, and basilar artery are widely patent. There is no significant s tenosis, occlusion, or aneurysm seen within the bilateral ACAs, MCAs . The right CONSULTANTS INTERN is widely patent . There is focal moderate narrowing at the confluence of the left P1/P2 segments. The distal left CONSULTANTS INTERN appears patent. Immediately posterior to the left CONSULTANTS INTERN at the expected location of the left posterior communicating artery there is a 7 mm hypodense partially calcified focus. 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 This corresponds to the CT abno rmality. The major dural venous sinuses are patent. Mild mucosal thickening within the right maxillar y sinus. The aortic arch and proximal great vessels are widely patent. 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 Moderate focal stenosis of approximately 50% within the takeoff of the left vertebral artery. Moderate atherosclerotic plaque within the takeo ff of the left internal carotid artery demonstrating approximately 30% focal stenosis. No high-grade stenosis within the internal carotid arteries. There is mild calcified plaque within the proximal rig ht internal carotid artery demonstrating approximately 20% focal stenosis on image 282. Bilateral com mon carotid arteries are widely patent. No evidence for carotid or vertebral artery dissection. IMPRESSION: 1. Moderate focal narrowing at the confluence of the left P1/P2 segments. The distal left CONSULTANTS INTERN appears patent. 2. Immediately posterior to the proximal left CONSULTANTS INTERN at the expected location of the left posterior comm unicating artery there is a 7 mm hypodense partially calcified focus. 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 3. Moderate focal stenosis at the takeoff of the left vertebral artery. 4. Mild stenosis within the proximal bilateral internal carotid arteries as described above. ACT 112: Negative or not required by law. Electronically signed by: Kamaljit Larkin M.D. 12/04/2021 1:52 PM
[2021-12-04] MEDS ORDERED: PANTOprazole 40 MG in SYRINGE 0 ML IV SCH (14:00)
[2021-12-04] MEDS ORDERED: GADOBUTROL 65ML VIAL IV ONE (15:14)
--- NOTE | 2021-12-04 15:34 | Magnetic Resonance Report ---
MRI OF THE BRAIN WITHOUT AND WITH IV CONTRAST CLINICAL HISTORY: Acute cerebrovascular accident. COMPARISON STUDY: Head CT and CTA of the head December 04, 2021. TECHNIQUE: Utilizing a 1.5 Nikki magnet and dedicated coil, multiplanar, multiecho imaging of the br ain was performed pre and postcontrast administration. IV administration of 8.5 mL of Gadavist contr ast was uneventful. FINDINGS: There are no foci of restricted diffusion to suggest acute infarct. No acute intracranial h emorrhage, midline shift or mass effect is present. Mild ventricular dilatation is due to moderate at rophy. White matter T2 hyperintense foci suggest moderate small vessel disease. An old infarct measur ing 1.1 x 0.2 cm within the right thalamus is present. There is also a 4 mm periventricular infarct w ithin the right frontal lobe shown on axial image 18 of . No intracranial mass or pathologic enhanc ement is identified. An 8 mm round nonenhancing abnormality posterior to the left ICA terminus on axi al image 11 corresponds the peripherally calcified abnormality on CTA. Basal cisterns are paten t. There are no extra axial collections. Calvarial signal is normal. There is mild right maxillary an d ethmoid sinus mucosal thickening. There is no fluid within the mastoid air cells. IMPRESSION: 1. No acute intracranial findings. 2. No intracranial mass or pathologic enhancement. 3. A few small old infarcts, as described above. Moderate atrophy and small vessel disease. 4. 8 mm round nonenhancing abnormality posterior to the left ICA terminus which corresponds to a marisel pherally calcified abnormality on CTA. 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 ACT 112: Negative or not required by law. Electronically signed by: Reji Long M.D. 12/04/2021 3:32 PM
--- NOTE | 2021-12-04 16:35 | Electrocardiogram Report ---
Test Reason : Blood Pressure : / mmHG Vent. Rate : 066 BPM Atrial Rate : 066 BPM P-R Int : 202 ms QRS Dur : 108 ms QT Int : 430 ms P-R-T Axes : 036 -20 033 degrees QTc Int : 450 ms Poor data quality, interpretation may be adversely affected Normal sinus rhythm Minimal voltage criteria for LVH, may be normal variant Borderline ECG No previous ECGs available Confirmed by Harsha Morrow ([id number]) on 12/04/2021 4:34:35 PM Referred By: Naseem Damian Confirmed By:Harsha Morrow
--- NOTE | 2021-12-04 16:48 | Electrocardiogram Report ---
Test Reason : Blood Pressure : / mmHG Vent. Rate : 056 BPM Atrial Rate : 056 BPM P-R Int : 186 ms QRS Dur : 104 ms QT Int : 436 ms P-R-T Axes : 036 -22 029 degrees QTc Int : 420 ms Sinus bradycardia with Premature supraventricular complexes Minimal voltage criteria for LVH, may be normal variant Borderline ECG When compared with ECG of 04-DEC-2021 11:00, Premature supraventricular complexes are now Present Confirmed by Harsha Morrow ([id number]) on 12/04/2021 4:48:26 PM Referred By: Naseem Damian Confirmed By:Harsha Morrow
[2021-12-05] MEDS ORDERED: NORMOSOL-R 500 ML IV ONE (04:17)
[2021-12-05 05:15] LABS: Hematocrit (blood only) 38.7 % (40.1-51.0); Hemoglobin 13.3 g/dl (14.0-18.0); Mean Corpuscular Hemoglobin 31.5 pg (25.0-34.0); Mean Corpuscular Hgb Conc 34.4 g/dL (32.0-36.0); Mean Corpuscular Volume 91.7 fL (80.0-100.0); Mean Platelet Volume 11.1 fL (9.4-12.4); Platelet Count 157 K/uL (130-400); RDW Coefficient of Variation 12.8 % (11.5-14.5); RDW Standard Deviation 42.1 fL (36.4-46.3); Red Blood Count 4.22 M/uL (4.63-6.08); White Blood Count 5.34 K/ul (4.8-10.8)
[2021-12-05 05:38] LABS: BUN Creatinine Ratio 14.1 (10-20); Calcium 8.9 mg/dl (8.5-10.1); Creatinine Clr Calc Pharmacy 45.8 ml/min; Est GFR (African American) 57.5 ml/min; Est GFR (Non-African American) 49.6 ml/min; Magnesium 2.1 mg/dl (1.7-2.4); Phosphorus 3.5 mg/dl (2.5-4.9); Potassium 3.8 mmol/L (3.5-5.1)
[2021-12-05] MEDS: POTASSIUM CHLORIDE / WTR 10 MEQ/100 ML PLCT IV SCH ×2 (06:37→08:56)
--- NOTE | 2021-12-05 07:47 | Critical Care Progress Note ---
Date of Service December 05, 2021 Assessment & Plan (1) Stroke-like symptoms: (2) Double vision: (3) HTN (hypertension): (4) Bilateral pulmonary embolism: (5) GIB (gastrointestinal bleeding): (6) Dyslipidemia: (7) Ex-smoker: Plan -- Strokelike symptoms with double vision and dizziness S/p TNK on 12/04/2021 11:30 AM in the ED Initial CT head 12/04/2021 negative for any intracranial finding. 8 mm peripheral calcified density posterior to left ICA terminus CTA Neck : 1. Moderate focal narrowing at the confluence of the left P1/P2 segments. The distal left CRYSTAL LAPPER appears patent. 2. Moderate focal stenosis at the takeoff of the left vertebral artery. Continue with neurochecks Blood pressure management. Maintain SBP less than 180, DBP less than 105 for the first 24 hours post tPA -- Bradycardia with PACs Asymptomatic Not on any beta-blockers at home Patient did not receive any beta-blockers in the ED EKG 12/03/2021 1:06 PM: Sinus bradycardia with PAC, no ST-T wave changes appreciated 2D echo 12/05/2021: EF 60-65%, grade 1 diastolic dysfunction, no intra-atrial shunt. Moderate AR, right ventricle normal in size and function -- REMI Improving Monitor BUNs/creatinine Avoid nephrotoxic medication --History of hypertension On amlodipine and lisinopril at home Resume it tomorrow --Dyslipidemia On rosuvastatin at home -- History of PE Diagnosed approximately 4-5 years ago Was on anticoagulation but stopped because of GI bleed in March 2021 -- History of GI bleed in the past Monitor H&H Continue Protonix --Ex-smoker Approximately [id number] smoking history Quit in the mid 30s Encouraged to continue abstinence from smoking --Prophylaxis VTE: IPC GI: Protonix Lines: Peripheral Diet: Cardiac Plan: In/out: -600, urine output 1880 Potassium being replaced. We will give the patient 500 mL of normal saline IV at 125 mill an hour. Repeat CT head at 1230 today. If it is negative patient will should be okay to be downgraded to medical floor Please note the above document was generated using voice recognition software. It may contain grammatical, syntax or spelling errors.Any formal questions or concerns about the content, text or information contained within the body of this dictation should be directly addressed to the provider for clarification. Admission and Anticipated Discharge Date Admission Date: December 04, 2021 Subjective Patient seen and examined at bedside. No acute distress, no adverse events overnight Denies any dizziness. No nausea since coming to the ICU No headache, no blurry vision Fair appetite Review of Systems Review of Systems: All systems reviewed & are unremarkable except as noted in Subjective Physical Exam Physical Exam: Constitutional: No acute distress HEENT: EOMI, PERRLA Respiratory system: Good air entry bilaterally, no wheeze, rhonchi, mild crackles bilateral lower lobe CVS: S1-S2 positive, no murmurs or gallops, bradycardia Abdomen: Soft, nontender, nondistended, positive bowel sounds x4 Extremities: +2 pulses bilaterally radialis/ dorsalis pedis, no cyanosis, no edema Neuro: Awake alert oriented x3 Psych: Normal mood and affect G/U: Positive Denis Skin: no rashes, warm and dry Lymphatic: no cervical or axillary lymphadenopathy Results & Data Results & Data ([facility]) Vital Signs (Past 12 Hours) Vital Signs Temp Pulse Pulse Resp BP Pulse Ox O2 Del Method 12/05/21 06:40 36.6 C 49 L 14 110/70 96 Room Air 12/05/21 05:40 36.5 C 50 L 12 117/70 96 Room Air 12/05/21 04:40 49 L 20 113/77 94 Room Air 12/05/21 03:40 36.5 C 45 L 16 98/64 L 93 Room Air 12/05/21 02:40 36.4 C L 44 L 16 102/66 93 Room Air 12/05/21 01:40 36.6 C 46 L 14 98/63 L 93 Room Air 12/05/21 00:40 37 C 45 L 14 109/69 93 Room Air 12/04/21 23:40 36.9 C 47 L 12 100/69 94 Room Air 12/04/21 23:32 48 L 12/04/21 22:40 46 L 12 106/65 93 Room Air 12/04/21 21:40 49 L 19 104/66 94 Room Air 12/04/21 20:00 86 12/04/21 20:40 37 C 60 20 115/80 97 Room Air 12/04/21 20:10 59 L 16 114/73 96 Room Air Laboratory Results 12/05/21 04:34 12/05/21 04:34 Coding Level of Care Code 44844 Subseq Hosp Care Lvl 3 Diagnoses Stroke-like symptoms R29.90 Double vision H53.2 HTN (hypertension) I10 Bilateral pulmonary embolism I26.99 GIB (gastrointestinal bleeding) K92.2 Dyslipidemia E78.5 Ex-smoker Z87.891
--- NOTE | 2021-12-05 08:03 | Electrocardiogram Report ---
Test Reason : Blood Pressure : / mmHG Vent. Rate : 044 BPM Atrial Rate : 044 BPM P-R Int : 196 ms QRS Dur : 102 ms QT Int : 482 ms P-R-T Axes : 034 -15 023 degrees QTc Int : 412 ms Marked sinus bradycardia Abnormal ECG When compared with ECG of 04-DEC-2021 13:06, Premature supraventricular complexes are no longer Present Confirmed by Harsha Morrow ([id number]) on 12/05/2021 8:03:08 AM Referred By: Naseem Damian Confirmed By:Harsha Morrow
[2021-12-05] MEDS ORDERED: PANTOprazole 40 MG TAB PO ONE (10:00)
--- NOTE | 2021-12-05 11:21 | Hospitalist Progress Note ---
Date of Service December 05, 2021 Assessment & Plan (1) Stroke-like symptoms: (2) Double vision: (3) HTN (hypertension): (4) Bilateral pulmonary embolism: (5) GIB (gastrointestinal bleeding): Plan Mr. Gallagher is a 81 year old male who presented to the [facility] with double vision and overall weakness that started 12/04 morning at 0830. Teleneuro consultation/CVA alert s/p TNK administration. Head CT r/o ICH; suggests 8mm density of the left ICA terminus. Head CTA and brain MRI pending. Pt to be admitted to ICU for post TNK neuro checks and HTN management. Stroke-like symptoms - Presented with dipolpia and weakness which is resolved. - S/p stroke alert and tPA 12/04/21 with resolution of symptoms. - MRI with no acute stroke. CTA head/neck reviewed. Discussed with neuro. Echo with no interatrial shunt or ASD, EF 60-65%, grade 1 diastolic dysfunction, mod AR. - Plan for repeat CT head at noon- if stable, transfer to floor and monitor overnight. - A1c and lipid panel pending. - Start on aspirin/statin. HTN: BP stable, resume home meds as indicated. Sinus bradycardia- HR in mid to high 50s. asymptomatic, not on AV maddie mekhi. Monitor. H/o pulmonary embolism: 4-5 years ago. 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 Dispo- pending CT head. PT/OT eval. Monitor overnight per neuro and can be discharged tomorrow. Updated son at [facility] Admission and Anticipated Discharge Date Admission Date: December 04, 2021 Subjective He feels good. No new neurological symptoms. Diplopia resolved, weakness resolved. Did not get much sleep. Eating well. I spoke with neurology team. Physical Exam Physical Exam: General: Lying comfortably in bed, not in distress, on room air Chest: Clear breath sounds bilaterally, no wheezes or crackles CVS: Mild bradycardia, regular, normal heart sounds, no murmur Abdomen: Soft, non tender, not distended, normal bowel sounds Neuro: Awake, alert, oriented, conversing well, non focal Extremities: No edema Results & Data Results & Data ([facility]) Vital Signs (Past 12 Hours) Vital Signs Temp Pulse Pulse Resp BP Pulse Ox O2 Del Method 12/05/21 10:40 53 L 14 129/76 94 Room Air 12/05/21 09:40 57 L 18 111/94 92 Room Air 12/05/21 08:00 56 L 12/05/21 08:40 36.7 C 61 24 132/71 94 Room Air 12/05/21 07:40 53 L 16 112/79 94 Room Air 12/05/21 06:40 36.6 C 49 L 14 110/70 96 Room Air 12/05/21 05:40 36.5 C 50 L 12 117/70 96 Room Air 12/05/21 04:40 49 L 20 113/77 94 Room Air 12/05/21 03:40 36.5 C 45 L 16 98/64 L 93 Room Air 12/05/21 02:40 36.4 C L 44 L 16 102/66 93 Room Air 12/05/21 01:40 36.6 C 46 L 14 98/63 L 93 Room Air 12/05/21 00:40 37 C 45 L 14 109/69 93 Room Air 12/04/21 23:40 36.9 C 47 L 12 100/69 94 Room Air 12/04/21 23:32 48 L Laboratory Results Short CBC 12/04/21 12/05/21 Range/Units 11:06 04:34 WBC 4.32 L 5.34 (4.8-10.8) K/ul Hgb 14.2 13.3 L (14.0-18.0) g/dl Hct 41.3 38.7 L (40.1-51.0) % Plt Count 152 157 (130-400) K/uL BMP 12/04/21 12/05/21 11:06 04:34 Sodium 139 137 Potassium 4.5 3.8 Chloride 104 105 Carbon Dioxide 28 25 BUN 22 19 Creatinine 1.46 H 1.35 Glucose 92 85 Calcium 9.5 8.9 Liver Function 12/04/21 Range/Units 11:06 Total Bilirubin 1.1 H (0.2-1.0) mg/dl AST 15 (13-39) U/L ALT 11 (7-52) U/L Alkaline Phosphatase 78 (34-104) U/L Albumin 4.9 (3.4-5.0) gm/dl Medications Administered Current Inpatient Medications Aspirin (No Aspirin Within 24hrs Of Thrombolytic-Stroke) 1 each PO UD VITALIY Stop: 12/05/21 12:29 Labetalol HCl (Labetalol Hcl Iv 5 Mg/Ml 20ml) 10 mg IV Q10M PRN PRN Reason: SBP above 185 or DBP above 110 Pantoprazole Sodium (Pantoprazole 40 Mg Tab) 40 mg PO DAILY VITALIY Stop: 01/05/22 08:59 Pantoprazole Sodium (Pantoprazole 40 Mg Tab) 40 mg PO .EXTRA DOSE ONE Stop: 12/05/21 10:01 Last Admin: 12/05/21 10:22 Dose: 40 mg
--- NOTE | 2021-12-05 11:27 | Neurology Consultation ---
Date of Consultation December 05, 2021 Assessment & Plan (1) Stroke-like symptoms: (2) Double vision: (3) HTN (hypertension): (4) Dyslipidemia: Plan ASSESSMENT AND PLAN/RECOMMENDATIONS: 1. Strokelike symptoms. Impression: The patient presented with sudden onset horizontal diplopia and generalized weakness, and was treated with tenecteplase, with improvement of symptoms. Following brain MRI did not show any evidence of acute pathology. Underlying etiology of acute neurological symptoms is not clear at this time. Acute cerebrovascular accident is still in differential but less likely based on history and negative brain MRI. There is a possibility of cerebral hypoperfusion, which can be due to cardiac rhythm abnormality or blood pressure drop as the patient has been on blood pressure medications with asymptomatic bradycardia. Plan: Even though current event might not be acute cerebrovascular accident, but the patient has imaging abnormalities of old lacunar infarcts and he is a candidate for secondary stroke prevention. For this, we will start patient on aspirin 81 mg daily if [address] shows no hemorrhagic conversion. Fasting lipid panel. We will keep the patient on statin treatment, with goal LDL level is lower than 70. Repeat head CT, which will be done around noontime today. If head CT shows no hemorrhagic complications, then the patient can be discharged to regular floor with telemetry. Management of hypertension. Goal blood pressure is below [id number]. Avoid hypotension and symptomatic bradycardia. Adjustment of blood pressure me dications as needed. The patient is educated about stroke symptoms. In the future, if he experiences any strokelike symptoms, he will go to emergency department without waiting We will monitor the patient today. If he stays stable, then he can be discharged home tomorrow. Physical therapy evaluation. DVT prophylaxis can be started after repeat head CT today if it comes unremarkable. Follow-up with neurology clinic in a month. 2. Hypertension Impression: The patient has been on double blood pressure medications for a long time. He denies any recent change of treatment. Plan: As seen above. 3. Hyperlipidemia Impression: Patient has been on rosuvastatin for lipid lowering. Plan: As seen above. 4. 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 After having gastrointestinal complications, this medication was stopped in March 2021. Thank you for the consultation. History of Present Illness Reason for Consultation: Stroke like symptoms s/p thrombolytic treatment Requesting Physician: Guillermo Douglass MD Attending Physician: Guillermo Douglass MD History of Present Illness The patient is a very pleasant, 81-year-old gentleman, who was brought to emergency department yesterday, after he experienced sudden onset of horizontal diplopia, and generalized weakness. He denies any unusual events, or change of routine yesterday. He woke up around 5 AM, and he noticed double vision, horizontal, around 8:30 AM. This was binocular diplopia based on the patient's description. At the same time, he felt generally weak, with heavy legs. He was able to walk to chair, and did not notice any mental status change, facial weakness numbness, or other cranial nerve symptoms, and no sensory deficit. His speech was not altered. When he was taking the emergency department, he was still complaining of double vision and heavy legs. Teleneurology was consulted, and the patient received tenecteplase around 11:30 AM yesterday. After treatment, the patient has noticed improvement of symptoms including double vision. Head CT was unremarkable and CT angiography that showed bilateral posterior cerebral artery stenosis, but no hemodynamically head and neck arterial narrowings or aneurysms. That was incidental findings all head CT, showing small left ICA terminus density, which was suggestive of old meningioma. 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 After thrombolytic treatment, the patient was admitted to the intensive care unit. Following brain MRI yesterday was negative for acute pathology including cerebrovascular accident but showed some small vessel disease related chronic ischemic changes and old lacunar infarct. Cardiac monitoring has been showing sinus rhythm. Heart rate is on the low side but the patient has been asymptomatic. The patient does not remember having similar symptoms in the past, but reports few occasions of double vision in the past, which lasted only for seconds. He has history of glaucoma, but denies any recent problems. He has been compliant on treatment including blood pressure and lipid-lowering medications. He has been followed by cardiology regularly. The patient has not had any stroke symptoms in the past. He denies postural dizziness, lighth eadedness, and episodes of diaphoresis. There is no recent head or neck trauma. The patient has history of pulmonary embolism, and until March 2021, he was on Xarelto, which was stopped after the patient had gastrointestinal bleeding. The patient denies racing heartbeats, or episodic dizziness. Echocardiogram was completed today, which did not show significant pathology. I have reviewed the patient's chart including imaging studies and visualized them personally. I have discussed the case with the patient answered his questions in detail. Allergies Allergy/AdvReac Type Severity Reaction Status Date / Time No Known Allergies Allergy Unverified 12/04/21 12:37 Home Medications Medication Instructions Recorded Confirmed Type amlodipine 5 mg tablet 5 mg PO DAILY 12/04/21 12/04/21 History lisinopril 40 mg tablet 40 mg PO DAILY 12/04/21 12/04/21 History pantoprazole 40 mg tablet,delayed 40 mg PO DAILY 12/04/21 12/04/21 History release rosuvastatin 20 mg tablet 20 mg PO DAILY 12/04/21 12/04/21 History Patient History Medical History Bilateral pulmonary embolism Double vision GI bleed GIB (gastrointestinal bleeding) H/O: HTN (hypertension) HTN (hypertension) Stroke-like symptoms Family History Other No significant family history Social History Smoking Status: Former smoker Hx Alcohol Use: No Hx Substance Use: No Preferred Language: Maori Communication Ability: Effective Sample Tailor Required: No Beliefs That Will Affect Care: Zoroastrian Zoroastrian Beliefs: Retired [employer]. Follows vegan, no oil diet. marital status: Single Current Living Situation: Alone current occupational status: retired Feels Safe at Home: Yes Assistive Devices: Glasses Review of Systems Review of Systems: All systems reviewed & are unremarkable except as noted in HPI & below Physical Exam Physical Exam: General Examination: Constitutional: Well developed person in no acute distress. HENT: Normal exam with inspection. CV: Hearth rhythm is regular. Neck: Supple, no carotid bruits. Lungs: Non-labored and comfortable breathing. Abdomen: Soft, non-tender, non-distended. Skin: No rash or ecchymosis. Extremities: No edema or cyanosis NEUROLOGICAL EXAMINATION: Mental Status: Alert and oriented to place, person and time. Cranial Nerves: II-XII are intact. No nystagmus. No double vision with gaze changes. Normal oculomotor exam. Funduscopy: Normal looking optic discs. Motor: 5/5 in all extremities without asymmetry. Tone: Normal without spasticity or rigidity. Sensory: Intact to all sensory modalities other than decreased vibratory sensation in feet. Coordination: No dysmetria with FTN testing. Speech: Fluent. Comprehension is intact. Gait: Not assessed. Musculoskeletal: Normal muscle bulk, no atrophy. Results & Data ([facility]) Vital Signs (Past 12 Hours) Vital Signs Temp Pulse Pulse Resp BP Pulse Ox O2 Del Method 12/05/21 09:40 57 L 18 111/94 92 Room Air 12/05/21 08:00 56 L 12/05/21 08:40 36.7 C 61 24 132/71 94 Room Air 12/05/21 07:40 53 L 16 112/79 94 Room Air 12/05/21 06:40 36.6 C 49 L 14 110/70 96 Room Air 12/05/21 05:40 36.5 C 50 L 12 117/70 96 Room Air 12/05/21 04:40 49 L 20 113/77 94 Room Air 12/05/21 03:40 36.5 C 45 L 16 98/64 L 93 Room Air 12/05/21 02:40 36.4 C L 44 L 16 102/66 93 Room Air 12/05/21 01:40 36.6 C 46 L 14 98/63 L 93 Room Air 12/05/21 00:40 37 C 45 L 14 109/69 93 Room Air 12/04/21 23:40 36.9 C 47 L 12 100/69 94 Room Air 12/04/21 23:32 48 L Laboratory Results Laboratory Results - last 24 hr 12/04/21 12/04/21 12/04/21 11:06 11:06 11:06 WBC 4.32 L RBC 4.40 L Hgb 14.2 Hct 41.3 MCV 93.9 MCH 32.3 MCHC 34.4 RDW Std Deviation 43.8 RDW Coeff of Lyudmila 12.8 Plt Count 152 MPV 10.9 Immature Gran % (Auto) 0.2 Neut % (Auto) 59.1 Lymph % (Auto) 25.2 Woodson % (Auto) 13.4 Eos % (Auto) 1.9 Baso % (Auto) 0.2 Neut # (Auto) 2.55 Lymph # (Auto) 1.09 L Woodson # (Auto) 0.58 Eos # (Auto) 0.08 Baso # (Auto) 0.01 Immature Gran # (Auto) 0.01 PT 10.9 INR 1.0 APTT 25.3 PTT Ratio 0.9 Sodium 139 Potassium 4.5 Chloride 104 Carbon Dioxide 28 Anion Gap 7 BUN 22 Creatinine 1.46 H Est Cr Clr Drug Dosing Not Reportable Est GFR ( Amer) 52.3 Est GFR (Non-Af Amer) 45.1 BUN/Creatinine Ratio 15.1 Glucose 92 Calcium 9.5 Phosphorus Magnesium 2.3 Total Bilirubin 1.1 H AST 15 ALT 11 Alkaline Phosphatase 78 Troponin I High Sens 9.3 Total Protein 7.8 Albumin 4.9 Globulin 2.9 Albumin/Globulin Ratio 1.7 Nasal Screen MRSA (PCR) SARS-CoV-2, RNA, NAAT Blood Type Antibody Screen 12/04/21 12/04/21 12/04/21 11:35 15:30 Unknown WBC RBC Hgb Hct MCV MCH MCHC RDW Std Deviation RDW Coeff of Lyudmila Plt Count MPV Immature Gran % (Auto) Neut % (Auto) Lymph % (Auto) Woodson % (Auto) Eos % (Auto) Baso % (Auto) Neut # (Auto) Lymph # (Auto) Woodson # (Auto) Eos # (Auto) Baso # (Auto) Immature Gran # (Auto) PT INR APTT PTT Ratio Sodium Potassium Chloride Carbon Dioxide Anion Gap BUN Creatinine Est Cr Clr Drug Dosing Est GFR ( Amer) Est GFR (Non-Af Amer) BUN/Creatinine Ratio Glucose Calcium Phosphorus Magnesium Total Bilirubin AST ALT Alkaline Phosphatase Troponin I High Sens Total Protein Albumin Globulin Albumin/Globulin Ratio Nasal Screen MRSA (PCR) Negative SARS-CoV-2, RNA, NAAT NEGATIVE Blood Type AB Positive Antibody Screen NEGATIVE 12/05/21 12/05/21 04:34 04:34 WBC 5.34 RBC 4.22 L Hgb 13.3 L Hct 38.7 L MCV 91.7 MCH 31.5 MCHC 34.4 RDW Std Deviation 42.1 RDW Coeff of Lyudmila 12.8 Plt Count 157 MPV 11.1 Immature Gran % (Auto) Neut % (Auto) Lymph % (Auto) Woodson % (Auto) Eos % (Auto) Baso % (Auto) Neut # (Auto) Lymph # (Auto) Woodson # (Auto) Eos # (Auto) Baso # (Auto) Immature Gran # (Auto) PT INR APTT PTT Ratio Sodium 137 Potassium 3.8 Chloride 105 Carbon Dioxide 25 Anion Gap 7 BUN 19 Creatinine 1.35 Est Cr Clr Drug Dosing 45.8 Est GFR ( Amer) 57.5 Est GFR (Non-Af Amer) 49.6 BUN/Creatinine Ratio 14.1 Glucose 85 Calcium 8.9 Phosphorus 3.5 Magnesium 2.1 Total Bilirubin AST ALT Alkaline Phosphatase Troponin I High Sens Total Protein Albumin Globulin Albumin/Globulin Ratio Nasal Screen MRSA (PCR) SARS-CoV-2, RNA, NAAT Blood Type Antibody Screen Diagnostic Findings Head CT 12/04/21 11:19 CT OF THE HEAD WITHOUT CONTRAST CLINICAL HISTORY: Stroke Like Symptoms. Ataxia. COMPARISON STUDY: No previous studies for comparison. CT DOSE: 687.98 mGy.cm TECHNIQUE: Helical axial images of the head were obtained without IV contrast. Automated exposure control was utilized for the study. A dose lowering technique was utilized adhering to the principles of ALARA. FINDINGS: No acute intracranial hemorrhage, midline shift or mass effect is present. Note is made of an 8 mm peripherally calcified density posterior to the left ICA terminus. White matter hypodensity suggests small vessel disease. The ventricular system is unremarkable. The basal cisterns are patent. No extra- axial collections are present. There are no findings to suggest acute dural sinus thrombosis or acute territorial infarct. No significant calvarial abnormalities are present. There is mild mucosal thickening of the right maxillary sinus. IMPRESSION: 1. No acute intracranial findings. 2. 8 mm peripherally calcified density posterior to the left ICA terminus. This is indeterminate and could reflect a peripherally calcified left posterior communicating artery aneurysm or a meningioma. A CTA of the head could be obtained for further evaluation. ACT 112: Negative or not required by law. Electronically signed by: Reji Long M.D. 12/04/2021 11:56 AM Head CTA 12/04/21 12:23 HEAD & NECK CTA HISTORY: Ataxia. posterior circ symptoms TECHNIQUE: Multiaxial CT images of the head were performed following the intravenous administration of contrast to evaluate the major cerebral vessels. Multiaxial CT images of the neck were also performed following the intravenous administration of contrast to evaluate the major cervical vessels. Maximum intensity projection images were also obtained. A dose lowering technique was utilized adhering to the principles of ALARA. COMPARISON: Head CT 12/04/2021. FINDINGS: There is no mass, hematoma, midline shift, or acute infarct. Visualized intracranial internal carotid arteries, distal vertebral arteries, and basilar artery are widely patent. There is no significant stenosis, occlusion, or aneurysm seen within the bilateral ACAs, MCAs . The right SECURITIES TRADER is widely patent. There is focal moderate narrowing at the confluence of the left P1/P2 segments. The distal left SECURITIES TRADER appears patent. Immediately posterior to the left SECURITIES TRADER at the expected location of the left posterior communicating artery there is a 7 mm hypodense partially calcified focus. 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 This corresponds to the CT abnormality. The major dural venous sinuses are patent. Mild mucosal thickening within the right maxillary sinus. The aortic arch and proximal great vessels are widely patent. Mild focal aneurysmal dilatation of the mid left vertebral artery on image 267 measuring 6.5 mm. Moderate focal stenosis of approximately 50% within the takeoff of the left vertebral artery. Moderate atherosclerotic plaque within the takeoff of the left internal carotid artery demonstrating approximately 30% focal stenosis. No high-grade stenosis within the internal carotid arteries. There is mild herman cified plaque within the proximal right internal carotid artery demonstrating approximately 20% focal stenosis on image 282. Bilateral common carotid arteries are widely patent. No evidence for carotid or vertebral artery dissection. IMPRESSION: 1. Moderate focal narrowing at the confluence of the left P1/P2 segments. The distal left SECURITIES TRADER appears patent. 2. Immediately posterior to the proximal left SECURITIES TRADER at the expected location of the left posterior communicating artery there is a 7 mm hypodense partially calcified focus. 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 3. Moderate focal stenosis at the takeoff of the left vertebral artery. 4. Mild stenosis within the proximal bilateral internal carotid arteries as described above. ACT 112: Negative or not required by law. Electronically signed by: Kamaljit Larkin M.D. 12/04/2021 1:52 PM Neck CTA 12/04/21 12:23 HEAD & NECK CTA HISTORY: Ataxia. posterior circ symptoms TECHNIQUE: Multiaxial CT images of the head were performed following the intravenous administration of contrast to evaluate the major cerebral vessels. Multiaxial CT images of the neck were also performed following the intravenous administration of contrast to evaluate the major cervical vessels. Maximum intensity projection images were also obtained. A dose lowering technique was utilized adhering to the principles of ALARA. COMPARISON: Head CT 12/04/2021. FINDINGS: There is no mass, hematoma, midline shift, or acute infarct. Visualized intracranial internal carotid arteries, distal vertebral arteries, and basilar artery are widely patent. There is no significant stenosis, occlusion, or aneurysm seen within the bilateral ACAs, MCAs . The right SECURITIES TRADER is widely patent. There is focal moderate narrowing at the confluence of the left P1/P2 segments. The distal left SECURITIES TRADER appears patent. Immediately posterior to the left SECURITIES TRADER at the expected location of the left posterior communicating artery there is a 7 mm hypodense partially calcified focus. 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 This corresponds to the CT abnormality. The major dural venous sinuses are patent. Mild mucosal thickening within the right maxillary sinus. The aortic arch and proximal great vessels are widely patent. Mild focal aneurysmal dilatation of the mid left vertebral artery on image 267 measuring 6.5 mm. Moderate focal stenosis of approximately 50% within the takeoff of the left vertebral artery. Moderate atherosclerotic plaque within the takeoff of the left internal carotid artery demonstrating approximately 30% focal stenosis. No high-grade stenosis within the internal carotid arteries. There is mild calcified plaque within the proximal right internal carotid artery demonstrating approximately 20% focal stenosis on image 282. Bilateral common carotid arteries are widely patent. No evidence for carotid or vertebral artery dissection. IMPRESSION: 1. Moderate focal narrowing at the confluence of the left P1/P2 segments. The distal left SECURITIES TRADER appears patent. 2. Immediately posterior to the proximal left SECURITIES TRADER at the expected location of the left posterior communicating artery there is a 7 mm hypodense partially calcified focus. 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 3. Moderate focal stenosis at the takeoff of the left vertebral artery. 4. Mild stenosis within the proximal bilateral internal carotid arteries as described above. ACT 112: Negative or not required by law. Electronically signed by: Kamaljit Larkin M.D. 12/04/2021 1:52 PM Brain MRI 12/04/21 13:07 MRI OF THE BRAIN WITHOUT AND WITH IV CONTRAST CLINICAL HISTORY: Acute cerebrovascular accident. COMPARISON STUDY: Head CT and CTA of the head December 04, 2021. TECHNIQUE: Utilizing a 1.5 Nikki magnet and dedicated coil, multiplanar, multiecho imaging of the brain was performed pre and postcontrast administration. IV administration of 8.5 mL of Gadavist contrast was uneventful. FINDINGS: There are no foci of restricted diffusion to suggest acute infarct. No acute intracranial hemorrhage, midline shift or mass effect is present. Mild ventricular dilatation is due to moderate atrophy. White matter T2 hyperintense foci suggest moderate small vessel disease. An old infarct measuring 1.1 x 0.2 cm within the right thalamus is present. There is also a 4 mm periventricular infarct within the right frontal lobe shown on axial image 18 of 25. No intracranial mass or pathologic enhancement is identified. An 8 mm round nonenhancing abnormality posterior to the left ICA terminus on axial image 11 of 25 corresponds the peripherally calcified abnormality on CTA. Basal cisterns are patent. There are no extra axial collections. Calvarial signal is normal. There is mild right maxillary and ethmoid sinus mucosal thickening. There is no fluid within the mastoid air cells. IMPRESSION: 1. No acute intracranial findings. 2. No intracranial mass or pathologic enhancement. 3. A few small old infarcts, as described above. Moderate atrophy and small vessel disease. 4. 8 mm round nonenhancing abnormality posterior to the left ICA terminus which corresponds to a peripherally calcified abnormality on CTA. 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 ACT 112: Negative or not required by law. Electronically signed by: Reji Long M.D. 12/04/2021 3:32 PM TTE-- unremarkable.
[2021-12-05 12:34] LABS: Estimated Average Glucose 103 mg/dl; Hemoglobin A1C 5.2 % (4.5-5.6)
--- NOTE | 2021-12-05 13:05 | CT Scan Report ---
CT SCAN OF THE BRAIN WITHOUT IV CONTRAST CLINICAL HISTORY: 24 hours status post TPA. COMPARISON STUDY: CT and MRI of the brain dated 12/04/2021. TECHNIQUE: Unenhanced axial CT scan of the brain is performed from the vertex to the skull base. A do se lowering technique was utilized adhering to the principles of ALARA. CT DOSE: 614.27 mGy.cm FINDINGS: Brain parenchyma: There is age-related involutional change noting moderate patchy subcortical and per iventricular microangiopathic disease. There is no hemorrhage, mass effect, or evidence of acute terr itorial ischemia by CT criteria. A chronic lacunar infarct is noted in the right thalamus. Kim-white matter differentiation is preserved. No extra-axial fluid collection is seen. Ventricles, sulci, cisterns: Prominent secondary to involutional change. Intracranial vasculature: There is atherosclerotic calcification of the cavernous carotid arteries. 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 This was better assessed on 's CT angiogram of the brain. Calvarium: Unremarkable. Sinuses and mastoids: There is moderate mucosal thickening in the right maxillary antrum. The remaini ng paranasal sinuses are clear. The mastoid air cells are well pneumatized. Orbits: The bony orbits are grossly intact. IMPRESSION: There is no hemorrhage, mass effect, or evidence of acute territorial ischemia by CT reg madden. ACT 112: Negative or not required by law. Electronically signed by: Kermit Jade M.D. 12/05/2021 1:04 PM
[2021-12-05] MEDS: ASPIRIN 81 MG ECTAB PO SCH (20:16)
[2021-12-05] MEDS ORDERED: ROSUVASTATIN CALCIUM 20 MG TAB PO SCH (21:00)
[2021-12-06 04:42] LABS: Hematocrit (blood only) 37.6 % (40.1-51.0); Hemoglobin 12.7 g/dl (14.0-18.0); Mean Corpuscular Hemoglobin 31.8 pg (25.0-34.0); Mean Corpuscular Hgb Conc 33.8 g/dL (32.0-36.0); Mean Corpuscular Volume 94.2 fL (80.0-100.0); Mean Platelet Volume 10.6 fL (9.4-12.4); Platelet Count 143 K/uL (130-400); RDW Coefficient of Variation 12.9 % (11.5-14.5); RDW Standard Deviation 44.3 fL (36.4-46.3); Red Blood Count 3.99 M/uL (4.63-6.08); White Blood Count 4.69 K/ul (4.8-10.8)
[2021-12-06 05:10] LABS: BUN Creatinine Ratio 13.1 (10-20); Calcium 7.9 mg/dl (8.5-10.1); Chol HDL Ratio 3.5 (0-5); Creatinine Clr Calc Pharmacy 47.6 ml/min; Est GFR (African American) 60.1 ml/min; Est GFR (Non-African American) 51.9 ml/min; Magnesium 1.9 mg/dl (1.7-2.4); Phosphorus 2.9 mg/dl (2.5-4.9); Potassium 3.9 mmol/L (3.5-5.1)
[2021-12-06] MEDS: ASPIRIN 81 MG ECTAB PO SCH (08:13)
[2021-12-06] MEDS ORDERED: PANTOprazole 40 MG TAB PO SCH (09:00)
--- NOTE | 2021-12-06 11:43 | Neurology Progress Note ---
Date of Service December 06, 2021 Assessment & Plan (1) Stroke-like symptoms: (2) Double vision: (3) HTN (hypertension): (4) Dyslipidemia: Plan ASSESSMENT AND PLAN/RECOMMENDATIONS: 1. Strokelike symptoms. Impression: The patient presented with sudden onset horizontal diplopia and generalized weakness, and was treated with tenecteplase, with improvement of symptoms. Following brain MRI did not show any evidence of acute pathology. Underlying etiology of acute neurological symptoms is not clear at this time. CVA is still in differential but less likely based on history and negative brain MRI. There is a possibility of cerebral hypoperfusion, which can be due to cardiac rhythm abnormality or blood pressure drop as the patient has been on blood pressure medications with asymptomatic bradycardia. Plan: Even though current event might not be acute cerebrovascular accident, but the patient has imaging abnormalities of old lacunar infarcts and he is a candidate for secondary stroke prevention. For this, the patient will stay on aspirin 81 mg daily. We will keep the patient on statin treatment, with goal LDL level is lower than 70. Management of hypertension. Goal blood pressure is below [id number]. Avoid hypotension and symptomatic bradycardia. Adjustment of blood pressure medications as needed. BP on low side even without Htn medication for last 2 days. Consider holding BP medications for now and he has an appointment with director of market intelligence soon. He should check his BP 2-3 times a day until cardiology visit. Good hydration is recommended. The patient is educated about stroke symptoms. In the future, if he experiences any strokelike symptoms, he will go to emergency department without waiting Physical therapy evaluation before discharge Neurologically stable to discharge home. No restriction. Follow-up with neurology clinic in a month. 2. Hypertension Impression: The patient has been on double blood pressure medications for a long time. He denies any recent change of treatment. Meds on hold since admission. Plan: As seen above. 3. Hyperlipidemia Impression: Patient has been on rosuvastatin for lipid lowering. Plan: As seen above. 4. 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 After having gastrointestinal complications, this medication was stopped in March 2021. Admission and Anticipated Discharge Date Admission Date: December 04, 2021 Subjective He feels good. No new neurological symptoms. Diplopia resolved, weakness resolved. Stroke w/u has been negative. BP has been on low side even without BP medications since the admission. Repeat HCt yesterday was negative for hemorrhagic conversion. Review of Systems Review of Systems: All systems reviewed & are unremarkable except as noted in HPI & below Physical Exam Physical Exam: General Examination: Constitutional: Well developed person in no acute distress. HENT: Normal exam with inspection. CV: Hearth rhythm is regular. Neck: Supple, no carotid bruits. Lungs: Non-labored and comfortable breathing. Abdomen: Soft, non-tender, non-distended. Skin: No rash or ecchymosis. Extremities: No edema or cyanosis NEUROLOGICAL EXAMINATION: Mental Status: Alert and oriented to place, person and time. Cranial Nerves: II-XII are intact. No nystagmus. No double vision with gaze changes. Normal oculomotor exam. Funduscopy: Normal looking optic discs. Motor: 5/5 in all extremities without asymmetry. Tone: Normal without spasticity or rigidity. Sensory: Intact to all sensory modalities other than decreased vibratory sensation in feet. Coordination: No dysmetria with FTN testing. Speech: Fluent. Comprehension is intact. Gait: Not assessed. Musculoskeletal: Normal muscle bulk, no atrophy. Results & Data ([facility]) Vital Signs (Past 12 Hours) Vital Signs Temp Pulse Pulse Resp BP BP Pulse Ox 12/06/21 07:30 36.9 C 49 L 16 124/73 95 12/06/21 03:48 36.5 C 12/06/21 03:47 36.5 C 12/06/21 03:40 46 L 14 94 12/06/21 03:30 42 L 92 12/06/21 03:30 104/71 12/06/21 03:20 42 L 91 12/06/21 03:15 105/66 12/06/21 03:15 41 L 92 12/06/21 03:10 43 L 91 12/06/21 03:00 43 L 91 12/06/21 02:50 43 L 91 12/06/21 02:45 42 L 91 12/06/21 02:45 117/71 12/06/21 02:40 42 L 92 12/06/21 02:30 43 L 92 12/06/21 02:30 100/64 12/06/21 02:20 42 L 93 12/06/21 02:15 107/70 12/06/21 02:15 43 L 92 12/06/21 02:10 46 L 93 12/06/21 02:00 48 L 93 12/06/21 02:00 97/64 L 12/06/21 01:50 45 L 93 12/06/21 01:45 42 L 94 12/06/21 01:45 109/66 12/06/21 01:40 42 L 94 12/06/21 01:31 108/67 12/06/21 01:31 42 L 93 12/06/21 01:30 44 L 93 12/06/21 01:20 44 L 92 12/06/21 01:15 110/69 12/06/21 01:15 44 L 92 12/06/21 01:10 44 L 92 12/06/21 01:00 46 L 91 12/06/21 01:00 117/74 12/06/21 00:50 43 L 91 12/06/21 00:45 104/67 12/06/21 00:45 44 L 92 12/06/21 00:40 43 L 91 12/06/21 00:30 43 L 92 12/06/21 00:30 107/63 12/06/21 00:20 43 L 93 12/06/21 00:15 110/65 12/06/21 00:15 43 L 14 94 12/06/21 00:00 43 L 12/06/21 00:10 43 L 94 12/06/21 00:00 43 L 93 12/06/21 00:00 109/65 12/05/21 23:50 43 L 95 12/05/21 23:45 99/72 L 12/05/21 23:45 52 L 92 12/05/21 23:40 43 L 92 O2 Del Method 12/06/21 07:30 Room Air 12/06/21 03:48 12/06/21 03:47 12/06/21 03:40 12/06/21 03:30 12/06/21 03:30 12/06/21 03:20 12/06/21 03:15 12/06/21 03:15 12/06/21 03:10 12/06/21 03:00 12/06/21 02:50 12/06/21 02:45 12/06/21 02:45 12/06/21 02:40 12/06/21 02:30 12/06/21 02:30 12/06/21 02:20 12/06/21 02:15 12/06/21 02:15 12/06/21 02:10 12/06/21 02:00 12/06/21 02:00 12/06/21 01:50 12/06/21 01:45 12/06/21 01:45 12/06/21 01:40 12/06/21 01:31 12/06/21 01:31 12/06/21 01:30 12/06/21 01:20 12/06/21 01:15 12/06/21 01:15 12/06/21 01:10 12/06/21 01:00 12/06/21 01:00 12/06/21 00:50 12/06/21 00:45 12/06/21 00:45 12/06/21 00:40 12/06/21 00:30 12/06/21 00:30 12/06/21 00:20 12/06/21 00:15 12/06/21 00:15 12/06/21 00:00 12/06/21 00:10 12/06/21 00:00 12/06/21 00:00 12/05/21 23:50 12/05/21 23:45 12/05/21 23:45 12/05/21 23:40 Laboratory Results Laboratory Results - last 24 hr 12/05/21 12/06/21 12/06/21 04:34 04:22 04:22 WBC 4.69 L RBC 3.99 L Hgb 12.7 L Hct 37.6 L MCV 94.2 MCH 31.8 MCHC 33.8 RDW Std Deviation 44.3 RDW Coeff of Lyudmila 12.9 Plt Count 143 MPV 10.6 Sodium 139 Potassium 3.9 Chloride 110 H Carbon Dioxide 26 Anion Gap 3 BUN 17 Creatinine 1.30 Est Cr Clr Drug Dosing 47.6 Est GFR ( Amer) 60.1 Est GFR (Non-Af Amer) 51.9 BUN/Creatinine Ratio 13.1 Glucose 83 Estimat Average Glucose 103 Hemoglobin A1c 5.2 Calcium 7.9 L Phosphorus 2.9 Magnesium 1.9 Triglycerides 107 Cholesterol 73 LDL Cholesterol, Calc 31 VLDL Cholesterol, Calc 21 HDL Cholesterol 21 Cholesterol/HDL Ratio 3.[address] 12/04/21 11:19 CT OF THE HEAD WITHOUT CONTRAST CLINICAL HISTORY: Stroke Like Symptoms. Ataxia. COMPARISON STUDY: No previous studies for comparison. CT DOSE: 687.98 mGy.cm TECHNIQUE: Helical axial images of the head were obtained without IV contrast. Automated exposure control was utilized for the study. A dose lowering technique was utilized adhering to the principles of ALARA. FINDINGS: No acute intracranial hemorrhage, midline shift or mass effect is present. Note is made of an 8 mm peripherally calcified density posterior to the left ICA terminus. White matter hypodensity suggests small vessel disease. The ventricular system is unremarkable. The basal cisterns are patent. No extra- axial collections are present. There are no findings to suggest acute dural sinus thrombosis or acute territorial infarct. No significant calvarial abnormalities are present. There is mild mucosal thickening of the right maxillary sinus. IMPRESSION: 1. No acute intracranial findings. 2. 8 mm peripherally calcified density posterior to the left ICA terminus. This is indeterminate and could reflect a peripherally calcified left posterior communicating artery aneurysm or a meningioma. A CTA of the head could be obtained for further evaluation. ACT 112: Negative or not required by law. Electronically signed by: Reji Long M.D. 12/04/2021 11:56 AM Head CTA 12/04/21 12:23 HEAD & NECK CTA HISTORY: Ataxia. posterior circ symptoms TECHNIQUE: Multiaxial CT images of the head were performed following the intravenous administration of contrast to evaluate the major cerebral vessels. Multiaxial CT images of the neck were also performed following the intravenous administration of contrast to evaluate the major cervical vessels. Maximum intensity projection images were also obtained. A dose lowering technique was utilized adhering to the principles of ALARA. COMPARISON: Head CT 12/04/2021. FINDINGS: There is no mass, hematoma, midline shift, or acute infarct. Visualized intracranial internal carotid arteries, distal vertebral arteries, and basilar artery are widely patent. There is no significant stenosis, occlusion, or aneurysm seen within the bilateral ACAs, MCAs . The right [employer]ITATION SUPERVISOR is widely patent. There is focal moderate narrowing at the confluence of the left P1/P2 segments. The distal left [employer]ITATION SUPERVISOR appears patent. Immediately posterior to the left [employer]ITATION SUPERVISOR at the expected location of the left posterior communicating artery there is a 7 mm hypodense partially calcified focus. 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 This corresponds to the CT abnormality. The major dural venous sinuses are patent. Mild mucosal thickening within the right maxillary sinus. The aortic arch and proximal great vessels are widely patent. Mild focal aneurysmal dilatation of the mid left vertebral artery on image 267 measuring 6.5 mm. Moderate focal stenosis of approximately 50% within the takeoff of the left vertebral artery. Moderate atherosclerotic plaque within the takeoff of the left internal carotid artery demonstrating approximately 30% focal stenosis. No high-grade stenosis within the internal carotid arteries. There is mild calcified plaque within the proximal right internal carotid artery demonstrating approximately 20% focal stenosis on image 282. Bilateral common carotid arteries are widely patent. No evidence for carotid or vertebral artery dissection. IMPRESSION: 1. Moderate focal narrowing at the confluence of the left P1/P2 segments. The distal left [employer]ITATION SUPERVISOR appears patent. 2. Immediately posterior to the proximal left [employer]ITATION SUPERVISOR at the expected location of the left posterior communicating artery there is a 7 mm hypodense partially calcified focus. 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 3. Moderate focal stenosis at the takeoff of the left vertebral artery. 4. Mild stenosis within the proximal bilateral internal carotid arteries as described above. ACT 112: Negative or not required by law. Electronically signed by: Kamaljit Larkin M.D. 12/04/2021 1:52 PM Neck CTA 12/04/21 12:23 HEAD & NECK CTA HISTORY: Ataxia. posterior circ symptoms TECHNIQUE: Multiaxial CT images of the head were performed following the intravenous administration of contrast to evaluate the major cerebral vessels. Multiaxial CT images of the neck were also performed following the intravenous administration of contrast to evaluate the major cervical vessels. Maximum intensity projection images were also obtained. A dose lowering technique was utilized adhering to the principles of ALARA. COMPARISON: Head CT 12/04/2021. FINDINGS: There is no mass, hematoma, midline shift, or acute infarct. Visualized intracranial internal carotid arteries, distal vertebral arteries, and basilar artery are widely patent. There is no significant stenosis, occlusion, or aneurysm seen within the bilateral ACAs, MCAs . The right SANITATION SUPERVISOR is widely patent. There is focal moderate narrowing at the confluence of the left P1/P2 segments. The distal left SANITATION SUPERVISOR appears patent. Immediately posterior to the left SANITATION SUPERVISOR at the expected location of the left posterior communicating artery there is a 7 mm hypodense partially calcified focus. 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 This corresponds to the CT abnormality. The major dural venous sinuses are patent. Mild mucosal thickening within the right maxillary sinus. The aortic arch and proximal great vessels are widely patent. Mild focal aneurysmal dilatation of the mid left vertebral artery on image 267 measuring 6.5 mm. Moderate focal stenosis of approximately 50% within the takeoff of the left vertebral artery. Moderate atherosclerotic plaque within the takeoff of the left internal carotid artery demonstrating approximately 30% focal stenosis. No high-grade stenosis within the internal carotid arteries. There is mild calcified plaque within the proximal right internal carotid artery demonstrating approximately 20% focal stenosis on image 282. Bilateral common carotid arteries are widely patent. No evidence for carotid or vertebral artery dissection. IMPRESSION: 1. Moderate focal narrowing at the confluence of the left P1/P2 segments. The distal left SANITATION SUPERVISOR appears patent. 2. Immediately posterior to the proximal left SANITATION SUPERVISOR at the expected location of the left posterior communicating artery there is a 7 mm hypodense partially calcified focus. 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 3. Moderate focal stenosis at the takeoff of the left vertebral artery. 4. Mild stenosis within the proximal bilateral internal carotid arteries as described above. ACT 112: Negative or not required by law. Electronically signed by: Kamaljit Larkin M.D. 12/04/2021 1:52 PM Brain MRI 12/04/21 13:07 MRI OF THE BRAIN WITHOUT AND WITH IV CONTRAST CLINICAL HISTORY: Acute cerebrovascular accident. COMPARISON STUDY: Head CT and CTA of the head December 04, 2021. TECHNIQUE: Utilizing a 1.5 Nikki magnet and dedicated coil, multiplanar, multiecho imaging of the brain was performed pre and postcontrast administration. IV administration of 8.5 mL of Gadavist contrast was uneventful. FINDINGS: There are no foci of restricted diffusion to suggest acute infarct. No acute intracranial hemorrhage, midline shift or mass effect is present. Mild ventricular dilatation is due to moderate atrophy. White matter T2 hyperintense foci suggest moderate small vessel disease. An old infarct measuring 1.1 x 0.2 cm within the right thalamus is present. There is also a 4 mm periventricular infarct within the right frontal lobe shown on axial image 18 of 25. No intracranial mass or pathologic enhancement is identified. An 8 mm round nonenhancing abnormality posterior to the left ICA terminus on axial image 11 of 25 corresponds the peripherally calcified abnormality on CTA. Basal cisterns are patent. There are no extra axial collections. Calvarial signal is normal. There is mild right maxillary and ethmoid sinus mucosal thickening. There is no fluid within the mastoid air cells. IMPRESSION: 1. No acute intracranial findings. 2. No intracranial mass or pathologic enhancement. 3. A few small old infarcts, as described above. Moderate atrophy and small vessel disease. 4. 8 mm round nonenhancing abnormality posterior to the left ICA terminus which corresponds to a peripherally calcified abnormality on CTA. 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 ACT 112: Negative or not required by law. Electronically signed by: Reji Long M.D. 12/04/2021 3:[address] 12/05/21 12:40 CT SCAN OF THE BRAIN WITHOUT IV CONTRAST CLINICAL HISTORY: 24 hours status post TPA. COMPARISON STUDY: CT and MRI of the brain dated 12/04/2021. TECHNIQUE: Unenhanced axial CT scan of the brain is performed from the vertex to the skull base. A dose lowering technique was utilized adhering to the principles of ALARA. CT DOSE: 614.27 mGy.cm FINDINGS: Brain parenchyma: There is age-related involutional change noting moderate patchy subcortical and periventricular microangiopathic disease. There is no hemorrhage, mass effect, or evidence of acute territorial ischemia by CT criteria. A chronic lacunar infarct is noted in the right thalamus. Kim-white matter differentiation is preserved. No extra-axial fluid collection is seen. Ventricles, sulci, cisterns: Prominent secondary to involutional change. Intracranial vasculature: There is atherosclerotic calcification of the cavernous carotid arteries. 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 This was better assessed on yesterday's CT angiogram of the brain. Calvarium: Unremarkable. Sinuses and mastoids: There is moderate mucosal thickening in the right maxillary antrum. The remaining paranasal sinuses are clear. The mastoid air cells are well pneumatized. Orbits: The bony orbits are grossly intact. IMPRESSION: There is no hemorrhage, mass effect, or evidence of acute territorial ischemia by CT criteria. ACT 112: Negative or not required by law. Electronically signed by: Kermit Jade M.D. 12/05/2021 1:04 PM
--- NOTE | 2021-12-06 14:25 | Discharge Summary ---
Date of Service December 06, 2021 Admission HPI Per Admitting Provider Mr. Gallagher is a 81 year old male who presented to the [facility] with double vision and overall lower extremity weakness that started this morning at 0830. He is visiting his family from [place] He reportedly stated that his legs felt 'rubbery'. The patient denies any recent trauma or other falls. He reports no history of previous CVA/TIA. 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 A CTA was performed as well and thrombosed PCOM was noted. MRI pending. Teleneuro consultation was held at 1130 post TNK, along with him receiving antihypertensive agents. Patient is DNR/DNI and discussion held with Neuro telemed; no need to transfer at this time. Additional PMH includes bilateral PE and his anticoagulation was discontinued in March 2021 s/p GIB . Otherwise, no real reported PMH and he is not currently in our EMR system. Patient will be admitted to ICU for post TNK neuro checks and BP management. Case discussed with Dr. Pool and Dr. Douglass in detail. Please see A/P for further details. Admission Exam Per Admitting Provider Neuro: AAOx4, PERRLA, no aphagia, memory changes. Midline gaze improved HEENT: head normocephalic, moist mucus membranes CV: S1/S2, (-) M/G/R, (-) edema, cap refill < 3 seconds Resp: Lungs CTA in all nicholson. On RA GI: Abdomen S/NT/ND, Ax4 bowel sounds, (-) CVA tenderness Musculoskeletal: 4+/5 B/L UE strength, 4+/5 B/L LE strength. Skin: (-) rashes , (-) erythema. Psych: euthymic mood Principal Diagnosis Stroke like symptoms (diplopia, weakness) s/p tPA Discharge Exam General: Lying comfortably in bed, not in distress, on room air Chest: Clear breath sounds bilaterally, no wheezes or crackles CVS: Mild bradycardia, regular, normal heart sounds, no murmur Abdomen: Soft, non tender, not distended, normal bowel sounds Neuro: Awake, alert, oriented, conversing well, non focal. strength 5/5, sensation grossly intact, no diplopia, no dysarthria, cranial nerves grossly intact, finger nose test normal Extremities: No edema Discharge Data Allergies Allergy/AdvReac Type Severity Reaction Status Date / Time No Known Allergies Allergy Unverified 12/04/21 12:37 Consultations 12/04/21 12:52 ED Decision to Admit Stat 12/04/21 13:10 Consult Neuro Psych Sales Specialist Routine 12/04/21 13:22 Consult Neurology Routine Ordered Studies 12/04/21 11:19 CT head/brain wo con Stat 12/04/21 12:23 CT angio head w con Stat CT angio neck with con Stat 12/04/21 13:07 MRI Brain [MR brain wo/w con] Stat 12/05/21 12:40 CT head/brain wo con Urgent Hospital Course (1) Stroke-like symptoms: (2) HTN (hypertension): Plan Mr. Gallagher is a 81 year old male who presented to the [facility] with double vision and overall weakness that started 12/04 morning at 0830. S/p stroke alert and s/p TPA with resolution of symptoms and no complications. Stroke-like symptoms - Presented with dipolpia and weakness which is resolved. No new neurological symptoms. - S/p stroke alert and s/p tPA 12/04/21 with resolution of symptoms. No complications. - No evidence of acute stroke in work up. CT, CTA head/neck, MRI brain and rep eat CT reviewed. Repeat CT stable with no hemorrhage. - MRI with no acute stroke but small old infarcts. - Echo with no interatrial shunt or ASD, EF 60-65%, grade 1 diastolic dysfunction, mod AR. Tele with sinus bradycardia- stable in mid to high 50s. - A1c 5.2, lipid panel reasonable on crestor - Continue aspirin/crestor- f/u with neuro in a month - Seen by PT/OT- cleared for dc home. RW provided per recommendation. HTN: BP stable off of amlodipine and lisinopril. Continue to hold at discharge and check BP at home regularly per neuro recommendation. F/u with cardio/PCP for initiation and titration up as needed. Sinus bradycardia- HR in mid to high 50s. asymptomatic, not on AV maddie mekhi. H/o pulmonary embolism: 4-5 years ago. 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 Comfortable and stable for discharge home. Total Time Total Time Spent Total Time Spent (In Minutes): 35 Discharge Plan Discharge Items Patient Disposition: Home - Self-Care Reason For Visit: WEAKNESS/DOUBLE VISION Discharge Diagnosis: Stroke-like symptoms Activity: Resume your previous activity Non-emergency contact: Primary Care Provider Call non-emergency contact if: you have any medication questions and your symptoms worsen Follow-up/Referrals: PCP,NO [Primary Care Provider] - Diet: Heart Healthy Addtl Attending Provider Instructions: Continue aspirin, Crestor Hold your blood pressure medications as your blood pressure has been stable without it. Continue checking blood pressure at home and follow up with cardiology/family doctor for further management. Keep yourself hydrated Follow up with neurology in a month If any stroke like symptoms, please come back to the emergency immediately Pending Studies at Discharge: No Stand-Alone Forms: [employer], Smoking Cessation Medications and DC Order Prescriptions: New aspirin 81 mg Tablet,Delayed Release (Dr/Ec) 81 mg PO QAM Qty: 30 0RF Continued pantoprazole 40 mg tablet,delayed release (DR/EC) 40 mg PO DAILY rosuvastatin 20 mg tablet 20 mg PO DAILY Discontinued amlodipine 5 mg tablet 5 mg PO DAILY lisinopril 40 mg tablet 40 mg PO DAILY Discharge Orders: Discharge Order (Routine); Ordered 12/06/21 Ordered By: Guillermo Douglass Admission Data Admit Date/Time: 12/04/21 12:53 Attending Provider: Guillermo Douglass Admit Provider: Guillermo Douglass Primary Care Provider: PCP,NO Other Providers: Guillermo Douglass ; Laura Pool ; Teja Dsouza
== END 2021-12-06 16:03 | disposition home or self-care (01) | DRG 52 ==
LOC: ED 10:43 → 1E 12:53